=== PATIENT | female | born 1945 | race Caucasian/White ===

== ENCOUNTER 2023-12-14 23:15 | Emergency (ER) | payer MEDICARE, OTHER, SELFPAY ==
[2023-12-14 23:22] VITALS: BMI 47.7
[2023-12-14 23:23] VITALS: BP 152/75
[2023-12-14 23:41] LABS: % Basophils 1.4 % (0-2); % Eosinophils 14.5 % (0-6); % Immature Granulocytes 0.2 % (0-0.5); % Lymphocytes 18.7 % (20.5-51.1); % Monocytes 7.3 % (1.7-9.3); % Neutrophils 57.9 % (42.2-75.2); Absolute Basophils 0.1 10^3/uL (0-0.2); Absolute Eosinophils 1.2 10^3/uL (0-0.7); Absolute Lymphocytes 1.6 10^3/uL (1.2-3.4); Absolute Monocytes 0.6 10^3/uL (0.1-0.6); Absolute Neutrophils 4.9 10^3/uL (1.4-6.5); Hematocrit 36.6 % (37.0-47.0); Hemoglobin 12.2 g/dL (12.0-16.0); Mean Corp Hgb Conc. 33.3 g/dL (33.0-37.0); Mean Corpuscular Hgb 28.8 pg (27.0-31.0); Mean Corpuscular Volume 86.3 fL (81.0-99.0); Mean Platelet Volume 9.1 fL (7.4-10.4); Nucleated Red Blood Cells % 0 %; Platelet Count 257 10^3/uL (130-400); Red Blood Cell Count 4.24 10^6/uL (4.20-5.40); Red Cell Dist. Width 14.6 % (11.5-14.5); White Blood Cell Count 8.4 10^3/uL (4.8-10.8)
[2023-12-14 23:48] LABS: Urine Albumin Trace (Neg - Trace); Urine Bilirubin Negative (Negative); Urine Character Slightly Cloudy (Clear); Urine Color Yellow; Urine Glucose Negative (Negative); Urine Ketone Negative (Negative); Urine Leukocyte 2+ (Negative); Urine Nitrite Negative (Negative); Urine Occult Blood 3+ (Negative); Urine Urobilinogen Negative (Neg - 1+)
--- NOTE | 2023-12-14 23:53 | ED.GENMED ---
History of Present Illness
General
Chief Complaint: Heart Rate Problem
Time Seen by Provider: 12/14/23 23:26
History of Present Illness
History of Present Illness:
78-year-old female with history of neuropathy and hypertension presenting to the emergency department for left lower extremity pain and palpitations. Patient reports about 2 hours prior to arrival she started to feel fluttering in her chest. She
also felt like her left lower extremity was more swollen than her right. Reports that she has issues with her left lower extremity, multiple surgeries in the past including knee replacement x2, with chronic neuropathy. Denies associated chest
pain. However the palpitation did make her feel short of breath. They have been intermittent. Denies fever. She has had a mild cough. Denies abdominal pain or GI symptoms. Denies any history of arrhythmia. Denies any history of blood clot.
Denies additional acute medical complaints.
Past History
Past History
ED Past Medical History: HTN, Hypercholesterolemia, Other (Diverticulosis) and Other (Pylelonephritis)
ED Past Surgical History: Appendectomy, Gynecological (Right oophorectomy), Orthopedic and Other (Right breast lumpectomy)
Social History
Tobacco: Former smoker
Alcohol: Occasional
Drug: None
Personal:
Living: with family
Employment: Employed
Family History
Family History: Other (No significant)
Phy Exam
Physical Exam
Physical Exam:
General: Well-appearing, no clinical signs of dehydration, nontoxic and in no acute distress
HEENT: protecting airway
Neck: appears supple
CV: Normal heart rate, regular rhythm, no evidence of cyanosis
Resp: No accessory muscle use, no increased work of breathing, lungs clear to auscultation bilaterally
Abd: Soft and non-distended, no tenderness to palpation, normal bowel sounds
Extremities: No deformities, no significant swelling or deformity to the lower extremities, appear symmetric without erythema or warmth. Tenderness to the left calf. Sensation grossly intact. Pulses intact.
Neuro: alert, no focal neurologic deficit
: deferred
Rectal: deferred
Psych: Normal affect
Skin: Intact
Course
Orders/Labs/Results
Orders:
Orders
12/14/23 23:21
Electrocardiogram (*1) Urgent
Reason for Study: Chest Pain
Cardiac Monitoring- Treatment ONCE
EKG- Treatment ONCE
IV Insert/Care/Rem.- Treatment PRN
O2 Therapy [RESP] Urgent
Titrate/Wean O2 to maintain O2 sat greater than (%): 90
Special Instructions: Maintain sats >/=90%
Pulse Ox/spot Check [RESP] Urgent
Quantity: 1
Special Instructions: ON ROOM AIR
12/14/23 23:34
Complete Blood Count/With Diff Urgent
Comprehensive Metabolic Panel Urgent
NT-proBNP Urgent
Troponin I Urgent
12/14/23 23:37
Urinalysis Reflex To Culture Urgent
Date Specimen was Collected: 12/14/23
Time Specimen was Collected: 23:35
Urine Microscopic Reflex Cult Urgent
Urine Culture Urgent
[place] Source: U
Specimen Description:
Date Specimen was Collected: 12/14/23
Time Specimen was Collected: 23:35
12/14/23 23:53
D-Dimer Urgent
12/15/23 00:00
US Periph Venous LOWER Ext LT Urgent
Reason For Exam: swelling, calf pain
12/15/23 00:24
CT Chest Pe Study Urgent
Comment:
Reason For Exam: palpitations, positive dimer
12/15/23 02:07
Electrocardiogram (*1) Urgent
Reason for Study: Chest Pain
EKG- Treatment ONCE
12/15/23 02:08
Cephalexin Monohydrate [Keflex] 500 mg PO NOW STA
Abnormal Lab Results
12/14/23 12/14/23 12/14/23
23:34 23:37 23:53
Hct 36.6 L %
(37.0-47.0)
RDW 14.6 H %
(11.5-14.5)
Absolute Eos (auto) 1.2 H 10^3/uL
(0-0.7)
Lymphocytes % 18.7 L %
(20.5-51.1)
Eosinophils % 14.5 H %
(0-6)
D-Dimer 0.74 H ug/mlFEU
(0.00-0.50)
BUN 25 H mg/dl
(7-17)
Glucose 122 H mg/dl
(70-99)
Ur Occult Blood Reflex 3+ A
(Negative)
Leukocyte Esterase Rfl 2+ A
(Negative)
Urine RBC 7-10 A /HPF
(0-2)
Urine WBC (Reflex) >100 A /HPF
(0-5)
Urine Bacteria (Reflex) Moderate A
(Negative)
12/14/23 23:34
12/14/23 23:34
Vital Signs
Initial and Last Documented VS:
Initial Vital Signs
Pulse Resp
89 25
12/14/23 23:20 12/14/23 23:20
Last Documented Vital Signs
Temp Pulse Resp BP Pulse Ox
98.2 F 90 16 139/76 97
12/14/23 23:22 12/15/23 02:00 12/15/23 02:00 12/15/23 02:00 12/14/23 23:25
MDM/Problems Addressed
MDM/Problems Addressed:
78-year-old female with history of hypertension, COPD, neuropathy presenting to the emergency department with palpitations and left lower extremity pain. Symptoms occurred prior to arrival significant for mild hypertension.
Patient well-appearing on physical exam, no acute distress. EKG obtained on patient's arrival given complaint of palpitations, no arrhythmia, no ischemia. Heart rate is controlled. Possible PVCs as etiology of preceding symptoms. However,
patient also concerned that left lower extremity is more swollen than right. No obvious swelling, however is focally tender to the left calf. No signs of infection to the extremity. For this reason we will obtain ultrasound imaging and screen
with D-dimer to ensure no blood clot or developing PE. Plan for laboratory analysis including electrolyte panel, troponin, as well as continued cardiac monitoring.
02:30 -patient had slightly elevated dimer, so CT chest obtained, CT without acute pathology. No PE. Lower extremity ultrasound without evidence of blood clot. Labs otherwise unremarkable. Patient remains hemodynamically stable. EKG repeated,
unchanged. Patient reports that she is still feeling palpitations. Given comorbidities, offered observation admission, however patient declined. At this time, feel stable for discharge however with close interval follow-up with her shuttler car
for potential Holter monitor. Patient feels comfortable with plan. Return precautions discussed and patient verbalized understanding
*EKG
Interpreted by ED Provider?: Yes
EKG Intrepretation Date: 12/14/23
EKG Intrepretation Time: 23:55
Interpretation: normal
Comparison EKG: no changes (03/19/21)
Heart Rate: 84
Rate: normal
Rhythm: sinus
[place]: normal axis
Interval: normal interval
QRS Pattern: normal QRS
Ischemia: no ischemia
*Critical Care Note
Total Time (30-74mins, 75-104mins- exclusive of procedures): Not Applicable
ED Attending Note
-
Portions of this chart may have been created with voice recognition software.� Occasional wrong word or��sound alike� substitutions may have occurred due to the inherent limitations of voice recognition software.
Discharge Plan
Departure
Patient Disposition: Home (Routine Discharge)
Date of Disposition: 12/15/23
Time of Disposition: 02:39
Patient with high blood pressure during this ER visit?: No
Condition: Good
Discharge Problem:
Palpitations, Urinary tract infection
Instructions: Palpitations (DC)
Prescriptions:
New
cephalexin 500 mg capsule
500 mg PO BID 7 Days Qty: 14 0RF
No Action
zolpidem 10 MG tablet
5 mg PO HS
acetaminophen [Tylenol Extra Strength] 500 MG tablet
1,000 mg PO Q4HPRN PRN (Reason: pain)
Patient Comments:
losartan 50 MG tablet
25 mg PO DAILY
diltiazem HCl 240 MG capsule,extended release 24hr
240 mg PO DAILY
aspirin [Lo-Dose Aspirin] 81 MG tablet,delayed release (DR/EC)
81 mg PO DAILY
pantoprazole 40 MG tablet,delayed release (DR/EC)
40 mg PO DAILY
fluticasone propion-salmeterol [Advair HFA] 1 PUFF HFA aerosol inhaler
2 puff inhalation R BID
furosemide [Lasix] 40 mg Tablet
40 mg PO DAILY
metolazone 5 mg Tablet
5 mg PO DAILY
benzonatate [Tessalon Perles] 100 mg Capsule
100 mg PO TID PRN (Reason: cough)
Referrals:
Christiano Mendoza MD [Family Provider] -
Activity Restrictions/Additional Instructions:
You were seen in the emergency department for palpitations
You were found to have normal laboratory analysis, CT chest imaging, lower extremity ultrasound and EKG. You were found to have a urinary tract infection and started on antibiotics.
Please follow-up closely with your primary care physician as well as her shuttler car.
Return to the emergency department for any worsening of your symptoms, or any development of chest pain, difficulty breathing, abdominal pain with persistent vomiting and inability to tolerate food or liquid by mouth (concern for dehydration),
weakness, headache or confusion, fever greater than 100.4, or any additional symptoms that are concerning to you.
Thank you for choosing [facility].
Interventions
Interventions:
*Risk Screen - Suicide Last Done: 12/14/23 23:22
*General Assessment Last Done: 12/14/23 23:22
*Neglect/Abuse Screening Last Done: 12/14/23 23:22
*ED COVID-19 Vaccine History Last Done: 12/14/23 23:22
*Nursing Disposition Last Done: 12/15/23 02:55
ED- Cardiac Assessment Last Done: 12/14/23 23:25
ED- Pulmonary Assessment Last Done: 12/14/23 23:25
Discharge Date and Time
Discharge Date/Time: 12/15/23 02:56
Print Language: ALGERIAN
[2023-12-14 23:58] LABS: ALT (SGPT) 18 U/L (0-35); AST (SGOT) 20 U/L (14-36); Albumin 4.3 g/dl (3.5-5.0); Alkaline Phosphatase 118 U/L (38-126); Blood Urea Nitrogen 25 mg/dl (7-17); Calcium 9.4 mg/dl (8.4-10.2); Carbon Dioxide 29 mmol/L (22-30); Chloride 102 mmol/L (98-107); Estimated Creatinine Clearance 57 ml/min; Glucose 122 mg/dl (70-99); Potassium 3.9 mmol/L (3.5-5.1); Sodium 140 mmol/L (135-145); Total Bilirubin 0.3 mg/dl (0.2-1.3); eGFR 56.95
[2023-12-15] VITALS: BP 153/75
[2023-12-15 00:10] LABS: NT-proBNP 46.5 pg/ml; Troponin I < 0.012 ng/ml
[2023-12-15 00:15] LABS: D-Dimer 0.74 ug/mlFEU (0.00-0.50)
[2023-12-15 00:29] LABS: Urine Bacteria Moderate (Negative); Urine White Cell >100 /HPF (0-5)
[2023-12-15 01:30] VITALS: BP 127/74
[2023-12-15 02:00] VITALS: BP 139/76
[2023-12-15] MEDS: KEFLEX 500 MG PO (02:45)
== END 2023-12-15 02:56 | disposition home or self-care (01) ==
LOC: EMR 23:15
PROVIDERS: Emergency Medicine; EMERGENCY PHYSICIAN Student in an Organized Health Care Education/Training Program; FAMILY PHYSICIAN Family Medicine
DX: R00.2 Palpitations (principal); N39.0 Urinary tract infection, site not specified; R22.42 Localized swelling, mass and lump, left lower limb; I10 Essential (primary) hypertension; Z87.891 Personal history of nicotine dependence
CPT/HCPCS: 71275; 80053; 81003; 81015; 83880; 84484; 85025; 85379; 87086; 87088; 87186; 93005; 93971; 99285; Q9967

== ENCOUNTER → 2024-01-04 12:50 | Outpatient (REF) | payer MEDICARE, OTHER, SELFPAY | LOC: RCS 12:50 | PROVIDERS: ATTENDING PHYSICIAN Internal Medicine; FAMILY PHYSICIAN Family Medicine | DX: I49.3 Ventricular premature depolarization (principal) | CPT/HCPCS: 93225; 93226 ==

== ENCOUNTER → 2024-02-12 11:00 | Outpatient (REF) | payer MEDICARE, OTHER, SELFPAY | LOC: WDC 11:00 | PROVIDERS: ATTENDING PHYSICIAN Family Medicine | DX: Z12.31 Encounter for screening mammogram for malignant neoplasm of breast (principal) | CPT/HCPCS: 77063; 77067 ==

== ENCOUNTER → 2024-03-03 09:31 | Outpatient (REF) | payer MEDICARE, OTHER, SELFPAY ==
[2024-03-03 11:02] LABS: % Basophils 1.5 % (0-2); % Eosinophils 10.9 % (0-6); % Immature Granulocytes 0.4 % (0-0.5); % Lymphocytes 20.2 % (20.5-51.1); % Monocytes 7.2 % (1.7-9.3); % Neutrophils 59.8 % (42.2-75.2); Absolute Basophils 0.1 10^3/uL (0-0.2); Absolute Eosinophils 0.6 10^3/uL (0-0.7); Absolute Lymphocytes 1.1 10^3/uL (1.2-3.4); Absolute Monocytes 0.4 10^3/uL (0.1-0.6); Absolute Neutrophils 3.1 10^3/uL (1.4-6.5); Hematocrit 39.5 % (37.0-47.0); Hemoglobin 12.6 g/dL (12.0-16.0); Mean Corp Hgb Conc. 31.9 g/dL (33.0-37.0); Mean Corpuscular Hgb 28.1 pg (27.0-31.0); Mean Platelet Volume 9.9 fL (7.4-10.4); Nucleated Red Blood Cells % 0 %; Platelet Count 279 10^3/uL (130-400); Red Blood Cell Count 4.49 10^6/uL (4.20-5.40); Red Cell Dist. Width 14.2 % (11.5-14.5); White Blood Cell Count 5.3 10^3/uL (4.8-10.8)
[2024-03-03 11:28] LABS: Glycohemoglobin (HgbA1c) 5.8 % (4.0-5.6)
[2024-03-03 11:30] LABS: ALT (SGPT) 21 U/L (0-35); AST (SGOT) 22 U/L (14-36); Albumin 4.4 g/dl (3.5-5.0); Alkaline Phosphatase 91 U/L (38-126); Blood Urea Nitrogen 24 mg/dl (7-17); Calcium 9.3 mg/dl (8.4-10.2); Carbon Dioxide 31 mmol/L (22-30); Chloride 100 mmol/L (98-107); Glucose 99 mg/dl (70-99); HDL Cholesterol 65 mg/dl; LDL Cholesterol, Calculated 150 mg/dl; Magnesium 2.4 mg/dl (1.6-2.3); Potassium 4.6 mmol/L (3.5-5.1); Sodium 143 mmol/L (135-145); Total Bilirubin 0.4 mg/dl (0.2-1.3); Total Cholesterol 240 mg/dl (50-199); Total Protein 7.1 g/dl (6.3-8.2); Triglyceride 126 mg/dl (10-149); Very Low Density Lipoprotein 25 mg/dl (0-30); eGFR > 60.00
== END ==
LOC: REG 09:31
PROVIDERS: ATTENDING PHYSICIAN Family Medicine
DX: E66.01 Morbid (severe) obesity due to excess calories (principal); R48.2 Apraxia; M79.10 Myalgia, unspecified site; J98.4 Other disorders of lung; E78.2 Mixed hyperlipidemia; I10 Essential (primary) hypertension; K21.9 Gastro-esophageal reflux disease without esophagitis; Z78.9 Other specified health status; R73.01 Impaired fasting glucose
CPT/HCPCS: 36415; 80053; 80061; 83036; 83735; 85025

== ENCOUNTER → 2024-06-20 12:47 | Outpatient (REF) | payer MEDICARE, OTHER, SELFPAY | LOC: WDC 12:47 | PROVIDERS: ATTENDING PHYSICIAN Family Medicine | DX: R92.2 Inconclusive mammogram (principal) | CPT/HCPCS: 76641 ==

== ENCOUNTER 2024-07-27 11:58 | Inpatient (IN) | payer MEDICARE, OTHER, SELFPAY ==
[2024-07-27] VITALS (9 sets, daily range): BP systolic 107–161; BP diastolic 52–93; BMI 42.1; BMI 44.5
[2024-07-27] MEDS: DUONEB 3 ML INH ×2 (09:23→17:37)
[2024-07-27] MEDS: DECADRON 6 MG IV (09:23)
[2024-07-27] MEDS: ROBITUSSIN AC 10 ML PO ×2 (09:23→17:12)
[2024-07-27] MEDS: NSS 500 IV (09:23)
[2024-07-27 09:30] LABS: % Basophils 0.8 % (0-2); % Eosinophils 0.1 % (0-6); % Immature Granulocytes 1.5 % (0-0.5); % Lymphocytes 6.2 % (20.5-51.1); % Monocytes 6.8 % (1.7-9.3); % Neutrophils 84.6 % (42.2-75.2); Absolute Basophils 0.2 10^3/uL (0-0.2); Absolute Immature Granulocytes 0.3 10^3/uL (0-0.05); Absolute Lymphocytes 1.2 10^3/uL (1.2-3.4); Absolute Monocytes 1.4 10^3/uL (0.1-0.6); Absolute Neutrophils 16.9 10^3/uL (1.4-6.5); Hematocrit 36.6 % (37.0-47.0); Hemoglobin 12.2 g/dL (12.0-16.0); Mean Corp Hgb Conc. 33.3 g/dL (33.0-37.0); Mean Corpuscular Hgb 27.5 pg (27.0-31.0); Mean Corpuscular Volume 82.6 fL (81.0-99.0); Mean Platelet Volume 9.1 fL (7.4-10.4); Nucleated Red Blood Cells % 0 %; Platelet Count 311 10^3/uL (130-400); Red Blood Cell Count 4.43 10^6/uL (4.20-5.40); Red Cell Dist. Width 15.3 % (11.5-14.5)
--- NOTE | 2024-07-27 09:34 | ED.GENMED ---
History of Present Illness
General
Chief Complaint: Cough
Source: patient
Exam Limitations: none
Time Seen by Provider: 07/27/24 08:44
Nursing documentation reviewed up to this point in time: agreed with
History of Present Illness
History of Present Illness:
Patient presents to ED secondary to worsening cough with shortness of breath over the past 2 weeks. At onset of her symptoms, patient was evaluated by her primary care physician and tested positive for influenza. Since then, patient has been on
multiple doses of steroids as well as inhaler, with minimal relief in symptoms. Denies fever or chills. Denies nausea, vomiting, or diarrhea. Denies recent travel. Denies leg pain or swelling. Denies back pain. Denies chest pain. Patient
states that she has had difficult time sleeping secondary to persistent cough. Upon arrival, patient is found to be hypoxic (85% on RA), requiring supplemental oxygen.
Past History
Past History
ED Past Medical History: HTN, Hypercholesterolemia, Other (Diverticulosis) and Other (Pylelonephritis)
ED Past Surgical History: Appendectomy, Gynecological (Right oophorectomy), Orthopedic and Other (Right breast lumpectomy)
Social History
Tobacco: Former smoker
Alcohol: Occasional
Drug: None
Personal:
Living: with family
Employment: Employed
Family History
Family History: Other (No significant)
Review of Systems
Review of Systems
Allergies reviewed?: Yes
All Other Systems: ROS reviewed and negative except as documented in HPI and ROS
Constitutional: Reports no symptoms; Denies fever
Respiratory: Reports cough and trouble breathing
Cardiac: Reports no symptoms; Denies chest pain
ABD/GI: Reports no symptoms; Denies vomiting or diarrhea
Musculoskeletal: Reports no symptoms; Denies edema
Skin: Reports no symptoms
Neurological: Reports no symptoms
Phy Exam
Physical Exam
Physical Exam:
Physical Exam
General: mild respiratory distress, not acutely ill. afebrile. hypoxic
Head: nc/at. eomi
Neck: supple. normal range of motion
Heart: s1/s2 regular rate and rhythm, no murmur. equal radial pulses.
Lungs: mild respiratory distress. rhonchi if he gets really winded I am uncomfortable cardiovascular bilaterally
Abdomen: normal bowel sounds. not tender.
Neuro: alert and oriented x 3. no focal neurological deficits
Skin: no rash
Psychiatric: well kept. interactive and cooperative
Extremities: no edema. no calf tenderness.
Course
Orders/Labs/Results
Orders:
Orders
07/27/24 09:05
CR Chest - 2 Views Urgent
Comment:
Reason For Exam: cough/sob
07/27/24 09:06
0.9% Sodium Chloride 500 ml [Nss] 500 ml IV BOLUS
Dexamethasone Sod Phosphate [Decadron] 6 mg IV NOW STA
Guaifenesin/Codeine Solution [Robitussin AC] 10 ml PO NOW STA
Ipratropium/Albuterol Sulfate [Duoneb] 3 ml INH R NOW STA
07/27/24 09:18
Complete Blood Count/With Diff Urgent
Lactic Acid Q4H
Comment: CANCEL 2nd LACTIC ACID IF 1st LACTIC ACID IS LESS THAN 2
Blood Culture Q30M
[place] Source: Blood/Venous
Specimen Description:
07/27/24 09:25
COVID-19 Antigen Urgent
Source: Nasal Swab
Blood Culture Q30M
BR[place] Source: Blood/Venous
Specimen Description:
Influenza A+B Rapid Molecular Urgent
BR[place] Source: Nasal Swab
Specimen Description:
07/27/24 Lunch
Regular
At Your Request: Full Participation
07/27/24 10:10
Comprehensive Metabolic Panel Urgent
Magnesium Urgent
07/27/24 10:13
Azithromycin 500 mg/250 ml [Zithromax Infusion] 500 mg in 250 ml IV NOW
CefTRIAXone [Rocephin] 1,000 mg IV NOW STA
07/27/24 11:27
ECG [Electrocardiogram (*1)] Routine
Reason for Study: Chest Pain
07/27/24 11:33
Admit/Transfer Patient As Directed
Co-Sign Provider:
Level of Care: Inpatient admission
Assign to:: Telemetry
Physician / Group: Karen
Diagnosis: Pneumonia with hypoxia
Reason for Telemetry: Arrhythmia
Date to Stop Telemetry: 07/30/24
Time to Stop Telemetry: 11:00
Reason for Hospitalization: Above
Expected length of stay greater than two midnights?: Yes
ELOS- Estimated Length of Stay in days: 2
I certify the patient meets the requirements for IP care: Yes
PRN Pain Medication Management As Directed
May give lesser potent ordered pain med per pt: Yes
preference::
Protocol:: Medication orders for pain may be administered in a
manner that supports deferring to patient preference
when the pt is:
- Requesting an ordered lesser potent pain medication.
Least to most potent pain medications are defined
as: acetaminophen < NSAID < tramadol < opioids
(morphine, oxycodone, hydromorphone).
- Requesting a lesser dose of the same medication IF
ORDERED.
- Requesting a less intrusive route of administration
if both routes are prescribed by the provider (PO <
IV).
07/27/24 11:35
Code Status As Directed
Resuscitation Status: Full Code
07/27/24 11:42
BNP [NT-proBNP] Urgent
DDimer [D-Dimer] Urgent
Troponin I Urgent
07/27/24 13:59
Albuterol [ProAIR HFA INHALER] 2 puff INH R Q6HPRN PRN
Guaifenesin/Codeine Solution [Robitussin AC] 10 ml PO Q4HPRN PRN
Ipratropium/Albuterol Sulfate [Duoneb] 3 ml INH R Q4HPRN PRN
07/27/24 13:59
Echo 2D MMode Color/Doppler Routine
Reason for Study: hypoxia
Incentive Spirometry [Rx Incentive Spirometry] [RESP] Routine
Frequency: q1h while awake
DX Deep Vein Thrombosis Video Routine
07/27/24 14:21
Acetaminophen [Tylenol] 1,000 mg PO Q4HPRN PRN
07/27/24 14:25
Benzonatate [Tessalon Perles] 100 mg PO TIDPRN PRN
07/27/24 14:30
Diltiazem Extended Release [Cardizem Cd] 240 mg PO DAILY
Losartan [Cozaar] 25 mg PO DAILY
07/27/24 15:00
Furosemide [Lasix] 40 mg PO DAILY
Pantoprazole [Protonix] 40 mg PO DAILY
07/27/24 16:00
Dexamethasone Sod Phosphate [Decadron] 4 mg IV Q8H
07/27/24 18:00
Enoxaparin Sodium [Lovenox] 40 mg SC QPM
07/27/24 20:00
Fluticasone/Salmeterol 115/21 [Advair Hfa 115/21 Mcg Inhaler] 2 puff INH R BID
07/27/24 22:00
Zolpidem Tartrate [Ambien] 5 mg PO HS
07/28/24 06:00
BMP [Basic Metabolic Panel] IN AM
CBC/No Diff [Complete Blood Count/No Diff] IN AM
07/28/24 08:00
Azithromycin [Zithromax] 500 mg PO DAILY
07/28/24 10:00
CefTRIAXone [Rocephin] 1,000 mg IV Q24H
07/30/24 11:00
DC Protocol for Telemetry ONCE
Abnormal Lab Results
03/11/1507/27/24 07/27/24
09:18 10:10 11:42
WBC 20.0 H 10^3/uL
(4.8-10.8)
Hct 36.6 L %
(37.0-47.0)
RDW 15.3 H %
(11.5-14.5)
Abs Immat Gran (auto) 0.3 H 10^3/uL
(0-0.05)
Absolute Neuts (auto) 16.9 H 10^3/uL
(1.4-6.5)
Absolute Monos (auto) 1.4 H 10^3/uL
(0.1-0.6)
Immature Gran % 1.5 H %
(0-0.5)
Neutrophils % 84.6 H %
(42.2-75.2)
Lymphocytes % 6.2 L %
(20.5-51.1)
D-Dimer 0.79 H ug/mlFEU
(0.00-0.50)
Sodium 130 L mmol/L
(135-145)
Chloride 95 L mmol/L
(98-107)
BUN 24 H mg/dl
(7-17)
Glucose 106 H mg/dl
(70-99)
ALT 43 H U/L
(0-35)
Albumin 3.4 L g/dl
(3.5-5.0)
07/27/24 09:18
07/27/24 10:10
Vital Signs
Initial and Last Documented VS:
Initial Vital Signs
Temp Pulse Resp BP Pulse Ox
99.2 F 110 20 161/61 98
07/27/24 08:35 07/27/24 08:35 07/27/24 08:35 07/27/24 08:35 07/27/24 08:35
Last Documented Vital Signs
Temp Pulse Resp BP Pulse Ox
98.5 F 110 18 143/83 92
07/27/24 14:06 07/27/24 14:51 07/27/24 14:06 07/27/24 14:51 07/27/24 14:06
MDM/Problems Addressed
MDM/Problems Addressed:
History, exam, and chest x-ray consistent with likely superimposed pneumonia, on top of her recent influenza infection. Patient's initial hypoxia, improving on supplemental oxygen. Patient will be admitted for IV antibiotics, nebulizer treatment,
supplemental oxygen, along with IV fluids.
*EKG
Interpreted by ED Provider?: Yes
EKG Intrepretation Date: 07/27/24
Heart Rate: 108
Rate: tachycardiac
Rhythm: sinus
[place]: normal axis
*Critical Care Note
Total Time (30-74mins, 75-104mins- exclusive of procedures): Not Applicable
ED Attending Note
-
Portions of this chart may have been created with voice recognition software.� Occasional wrong word or��sound alike� substitutions may have occurred due to the inherent limitations of voice recognition software.
Discharge Plan
Departure
Patient Disposition: Admit
Date of Disposition: 07/27/24
Time of Disposition: 10:16
Admit to: Telemetry
Presentation/result/management discussed w/ accepting MD/DO: Hospitalist
Discharge Problem:
Pneumonia, Hypoxia
Interventions
Interventions:
*Risk Screen - Suicide Last Done: 07/27/24 08:35
*General Assessment Last Done: 07/27/24 09:29
*Neglect/Abuse Screening Last Done: 07/27/24 08:35
*ED- Fall Risk Assessment Last Done: 07/27/24 09:29
*ED COVID-19 Vaccine History Last Done: 07/27/24 09:29
*Nursing Disposition Last Done: 07/27/24 12:17
ED- Pulmonary Assessment Last Done: 07/27/24 09:29
Discharge Date and Time
Discharge Date/Time: 07/27/24 13:45
[2024-07-27 09:48] LABS: Lactic Acid 1.7 mmol/L (0.7-2.0)
[2024-07-27 09:53] LABS: COVID-19 Antigen Negative (Negative)
[2024-07-27] MEDS: ROCEPHIN 1000 MG IV (10:19)
[2024-07-27] MEDS: ZITHROMAX INFUSION 250 IV (10:19)
[2024-07-27 10:37] LABS: ALT (SGPT) 43 U/L (0-35); AST (SGOT) 30 U/L (14-36); Albumin 3.4 g/dl (3.5-5.0); Alkaline Phosphatase 118 U/L (38-126); Blood Urea Nitrogen 24 mg/dl (7-17); Calcium 9.2 mg/dl (8.4-10.2); Carbon Dioxide 28 mmol/L (22-30); Chloride 95 mmol/L (98-107); Estimated Creatinine Clearance 68 ml/min; Glucose 106 mg/dl (70-99); Magnesium 2.2 mg/dl (1.6-2.3); Potassium 4.1 mmol/L (3.5-5.1); Sodium 130 mmol/L (135-145); Total Bilirubin 1.1 mg/dl (0.2-1.3); Total Protein 6.3 g/dl (6.3-8.2); eGFR > 60.00
--- NOTE | 2024-07-27 11:48 | HPS.HSE ---
Family Physician
-
Family Physician: Christiano Mendoza
Chief Complaint
-
Shortness of breath and cough
History of Present Illness
Patient is 78 years old female with hypertension, dyslipidemia who was diagnosed with influenza over a week prior to presentation. Patient was seen by primary physician initiated on inhaled corticosteroids and nebulizers, went through multiple
courses of oral steroids, although comes to the emergency room with complaints of worsening of shortness of breath, persistent cough which become productive over the last few days. She reports subjective fever. She has persistent chest pain with
cough. In addition she complains inability to sleep through the night or lay flat. She denies any lower extremity swelling. She has been compliant with her blood pressure regimen including furosemide.
While in the emergency room patient found to be in mild respiratory distress with increased work of breathing, tachycardia. She was found to be hypoxic with pulse ox of 88% on room air. Improved with nasal cannula oxygen supplementation at 2 L
currently saturating at 90s.
Medical History
Past Medical History
Past Medical History: Reports HTN, Hypercholesterolemia and Other (UTI)
Past Surgical History: Reports None
Social History
Tobacco: Non-smoker
Alcohol: None
Drug: None
Personal:
Living: With Family
Family History
Family History: Not pertinent
Allergies / Home Medications
Allergies reflects when Allergies were last updated in [facility].
Home Medications with original date entered in [facility]
Allergy/Medication List:
Allergies
Allergy/AdvReac Type Severity Reaction Status Date / Time
adhesive tape [Adhesive Tape] Allergy blisters Verified 07/27/24 08:38
Barbiturates Allergy hyperactivi Verified 07/27/24 08:38
ty
morphine Allergy itchy face Verified 07/27/24 08:38
and nausea
Vicryl sutures Allergy rejection Uncoded 07/27/24 08:38
reaction
Home Medications
acetaminophen 500 mg tablet (Tylenol Extra Strength) 1,000 mg PO Q4HPRN PRN MILD pain 06/19/18
diltiazem HCl 240 mg capsule,extended release 24 hr 240 mg PO DAILY 03/24/21
pantoprazole 40 mg tablet,delayed release 40 mg PO DAILY 03/24/21
benzonatate 100 mg capsule 100 mg PO TIDPRN PRN cough 12/15/23
furosemide 40 mg tablet (Lasix) 40 mg PO DAILY 12/15/23
albuterol sulfate 90 mcg/actuation aerosol inhaler 2 puff inhalation R Q6HPRN PRN sob 07/27/24
fluticasone propionate 115 mcg-salmeterol 21 mcg/actuation HFA inhaler (Advair HFA) 2 puff inhalation R BID 07/27/24
ipratropium bromide 17 mcg/actuation HFA aerosol inhaler (Atrovent HFA) 2 puff inhalation R Q6HPRN PRN sob 07/27/24
losartan 25 mg tablet 25 mg PO DAILY 07/27/24
prednisone 20 mg tablet 60 mg PO DIRECTED 07/27/24
promethazine-DM 6.25 mg-15 mg/5 mL oral syrup 5 ml PO Q6HPRN PRN cough 07/27/24
tirzepatide (weight loss) 5 mg/0.5 mL subcutaneous pen injector (Zepbound) 5 mg SC WE 07/27/24
zolpidem 5 mg tablet (Ambien) 5 mg PO HS 07/27/24
Review of Systems
-
A 12 point ROS was completed and negative except as noted: Yes
Respiratory: Reports See HPI
Cardiac: Reports See HPI
Abdomen/GI: Reports See HPI
Physical Exam
Vital Signs
Vital Signs
Temp Pulse Resp BP Pulse Ox
99.2 F 115 16 130/91 91
07/27/24 08:35 07/27/24 09:15 07/27/24 10:00 07/27/24 09:00 07/27/24 09:15
Physical Exam
General: Well Developed, Well Nourished and No Apparent Distress
HEENT: NormoCephalic, Moist mucous membranes and Atraumatic
Respiratory: Clear
Cardiac: S1/S2 and Regular Rhythm; No Murmur or Rub
GI: Soft, Non Tender, Non Distended and Normal Bowel Sounds; No Organomegaly
Rectal: Deferred by Provider
Musculoskeletal: No Clubbing, No Cyanosis and No Edema
Skin: No Rash
Neuro: Nonfocal/grossly intact
Laboratory Results
-
07/27/24 09:18
07/27/24 10:10
Laboratory Results
Lactic Acid 1.7 mmol/L (0.7-2.0) 07/27/24 09:18
Total Bilirubin 1.1 mg/dl (0.2-1.3) 07/27/24 10:10
AST 30 U/L (14-36) 07/27/24 10:10
ALT 43 U/L (0-35) H 07/27/24 10:10
Alkaline Phosphatase 118 U/L (38-126) 07/27/24 10:10
Impression/Plan
-
IMPRESSION:
Acute hypoxic respiratory failure
Pneumonia, post influenza with right lower lobe infiltrate.
Orthopnea, paroxysmal nocturnal dyspnea
Leukocytosis probably steroid-induced.
Conditions prior to admission:
Hypertension
Dyslipidemia baseline
Obesity due to excessive calories with BMI of 42
PLAN:
Acute hypoxic respiratory failure with pulse ox of 88% on room air.
Suspect secondary to pneumonia, community-acquired post influenza
Chest x-ray with hypoinflation, with right lower lobe consolidation
Productive cough.
Noted with leukocytosis although likely steroid-induced while on corticosteroid taper
COVID/influenza negative on arrival
Sputum culture
Procalcitonin
Continue oxygen supplementation
Antibiotics: Ceftriaxone/Zithromax
Antitussives
Incentive spirometry
Inhaled JOEL/JORGE
Okay to continue Advair
Given significant bronchospasm on exam continue systemic corticosteroids: Decadron 4 mg IV every 8 hours
Given degree of hypoxia out of proportion of x-ray findings only minimal right lower lobe consolidation.
Check cardiac markers BNP/troponin
D-dimer
Echocardiogram
ECG
Hypertension
Continue preadmission regimen including diltiazem losartan, furosemide
GERD
Continue PPI
Obesity with BMI of 42 aspects affects all aspects of care.
Full code
DVT prophylaxis Lovenox
[2024-07-27 12:07] LABS: D-Dimer 0.79 ug/mlFEU (0.00-0.50)
[2024-07-27 12:16] LABS: NT-proBNP 474 pg/ml; Troponin I < 0.012 ng/ml
[2024-07-27 13:04] LABS: Procalcitonin 0.26 ng/ml (0.0-0.25)
[2024-07-27] MEDS: CARDIZEM CD 240 MG PO (14:50)
[2024-07-27] MEDS: PROTONIX 40 MG PO (14:50)
[2024-07-27] MEDS: COZAAR 25 MG PO (14:51)
[2024-07-27] MEDS: LASIX 40 MG PO (14:51)
[2024-07-27] MEDS: DECADRON 4 MG IV ×2 (16:44→23:43)
[2024-07-27] MEDS: TESSALON PERLES 100 MG PO (16:46)
[2024-07-27] MEDS: TYLENOL 1000 MG PO (16:47)
[2024-07-27] MEDS: LOVENOX 40 MG SC (17:12)
--- NOTE | 2024-07-27 18:24 | PTCARENOTE ---
Pt received from ED and walked to bed from stretcher with rolling walker. VSS. AAOx3. Oriented to unit by this RN. Pt taken to echo. When back, pt complaining of cough. PRN medications given. Monitor showing afib rythmn. made aware. EKG obtained
showing NSR with premature supraventricular complexes. Pt cough subsided and pt states feeling better, will continue to monitor.
[2024-07-27] MEDS: ADVAIR HFA 115/21 MCG INHALER 2 PUFF INH (20:20)
[2024-07-27] MEDS: DESENEX/MITRAZOL/ZEASORB 1 APPLIC TOPICAL (21:59)
[2024-07-27] MEDS: AMBIEN 5 MG PO (21:59)
[2024-07-28] VITALS (7 sets, daily range): BP systolic 103–123; BP diastolic 52–90
[2024-07-28 06:33] LABS: Hematocrit 33.5 % (37.0-47.0); Mean Corp Hgb Conc. 32.8 g/dL (33.0-37.0); Mean Corpuscular Hgb 27.2 pg (27.0-31.0); Mean Corpuscular Volume 82.7 fL (81.0-99.0); Mean Platelet Volume 9.2 fL (7.4-10.4); Platelet Count 295 10^3/uL (130-400); Red Blood Cell Count 4.05 10^6/uL (4.20-5.40); Red Cell Dist. Width 15.3 % (11.5-14.5); White Blood Cell Count 17.9 10^3/uL (4.8-10.8)
[2024-07-28 06:42] LABS: Blood Urea Nitrogen 24 mg/dl (7-17); Calcium 9.4 mg/dl (8.4-10.2); Carbon Dioxide 29 mmol/L (22-30); Chloride 92 mmol/L (98-107); Estimated Creatinine Clearance 78 ml/min; Glucose 164 mg/dl (70-99); Potassium 4.3 mmol/L (3.5-5.1); Sodium 132 mmol/L (135-145); eGFR > 60.00
[2024-07-28] MEDS: ADVAIR HFA 115/21 MCG INHALER 2 PUFF INH ×2 (07:17→18:16)
[2024-07-28] MEDS: COZAAR 25 MG PO (08:44)
[2024-07-28] MEDS: TESSALON PERLES 100 MG PO ×3 (08:44→21:16)
[2024-07-28] MEDS: DECADRON 4 MG IV ×2 (08:44→16:49)
[2024-07-28] MEDS: ZITHROMAX 500 MG PO (08:45)
[2024-07-28] MEDS: LASIX 40 MG PO (08:45)
[2024-07-28] MEDS: CARDIZEM CD 240 MG PO (08:45)
[2024-07-28] MEDS: ROBITUSSIN AC 10 ML PO ×3 (08:45→21:16)
[2024-07-28] MEDS: PROTONIX 40 MG PO (08:45)
[2024-07-28] MEDS: ROCEPHIN 1000 MG IV (08:53)
[2024-07-28] MEDS: STERILE WATER FOR INJECTION 10 ML IV (08:54)
[2024-07-28] MEDS: DESENEX/MITRAZOL/ZEASORB TOPICAL (09:38)
--- NOTE | 2024-07-28 13:20 | CM ---
Met with patient to obtain information for assessment. Patient stated that she lives with her spouse in a two story home with two steps to enter. She described herself as independent with all ADLs, personal care, dressing and bathing. She is able to
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 She has been driving and transporting herself to her appointments and does all of her own shopping.
Patient has not had VN services.
She has not been to a DME.
Patient has a prescription plan and uses, [facility] in [place] for all of her medications.
Patient's PCP is, Christiano Mendoza.
Patient stated that functionally she is at baseline however she does not have o2 at home and therefore if she can't wean she will need that set up.
--- NOTE | 2024-07-28 14:21 | PN.CDI ---
CDI
- -
CDI:
Physician Documentation Request
Admit Date: 07/27/24 11:58
Dear Doctor Karen,
Patient admitted with pneumonia.
On admission, WBC 20.0 and HR> 90.
Patent receiving IV Rocephin and IV Zithromax.
Please clarify which of the following most accurately describes the status of the patient's infection:
Sepsis, POA
Pneumonia only
Other
Sepsis
- Systemic manifestations of infection, with 2 or more SIRS criteria which include:
- Fever >100.4 degrees F or hypothermia < 96.8 degrees F
- Leukocytosis - WBC > 12,000 or leukopenia - WBC < 4,000 or > 10% bands
- Tachycardia > 90 beats per minute
- Tachypnea - RR > 20 breaths per minute or PaCO2 , 32mmHg
Source: Merck Manual 2013
- Indicate the known or suspected organism
- Indicate the known or suspected underlying infection, such as pneumonia
Localized Infection Only, Without Systemic Illness
- indicate the site/source, such as pneumonia
Other
Use of terms such as suspected, likely, concern for, or probable (associated with a specific diagnosis that is being evaluated, monitored, or treated as if it exists) are acceptable and can be coded in the inpatient setting, when documented at the
time of discharge.
Thank you,
Lindsey TA,RN,CCDS
CDI Specialist
Available via [place] text
Please use your independent medical judgment in providing your response.
--- NOTE | 2024-07-28 14:31 | PN.CDI ---
CDI
- -
CDI:
Physician Documentation Request
Admit Date: 07/27/24 11:58
Dear Doctor Karen,
Patient admitted with pneumonia.
Na levels documented below:
Patient received IV NSS.
Laboratory Tests
07/27/24 07/28/24
10:10 05:49
Sodium 130 L 132 L
Based on the above, please clarify in the progress notes, the appropriate diagnosis, if significant, that supports the above abnormalities and additional evaluation, monitoring and/or treatment rendered:
Hyponatremia
Insignificant abnormal lab finding
Other
Use of terms such as suspected, likely, concern for, or probable (associated with a specific diagnosis that is being evaluated, monitored, or treated as if it exists) are acceptable and can be coded in the inpatient setting, when documented at the
time of discharge.
Thank you,
Lindsey TA,RN,CCDS
CDI Specialist
Available via [place] text
Please use your independent medical judgment in providing your response.
[2024-07-28] MEDS: DUONEB 3 ML INH (15:10)
--- NOTE | 2024-07-28 15:32 | CON.ID ---
Addendum entered and electronically signed by Chuck Jones MD 07/31/24 16:54:
Sepsis present on admission.
Mild hyponatremia likely in the settings of acute pulmonary illness
Original Note:
Consultation
-
Date/Time Consultation Requested: July 28, 2024
Date/Time Consultation Performed: July 28, 2024
Requesting Provider: Dr. Chuck Jones
Performing Provider: Dr. Beatriz Dickson
Reason for Consultation: Bacteremia, pneumonia
Chief Complaint / Past History
Chief Complaint
Progressive cough
History of Present Illness
78-year-old female with history of hypertension, mild COPD who presented to the hospital on July 27 due to worsening cough and shortness of breath. She reports that 2 weeks ago she developed a dry cough and was diagnosed with influenza A which was
treated with oseltamivir. Of note she is not up-to-date with this season's vaccine against the flu. Her symptoms did not improve and continued to progress. Cough without response to inhalers. She has spasms from the cough. No sinus congestion.
No headaches. She has subjective fever and chills. No nausea vomiting or diarrhea. In the ED white count 20. She was hypoxic 88%. Chest CT showed airspace opacities from mid to lower lungs bilaterally. Admission blood cultures x 2 GPC in
clusters. Currently on ceftriaxone, azithromycin, dexamethasone.
Past History
Additional Past Medical History:
Hypertension
Dyslipidemia
Mild COPD
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
Allergy History:
adhesive tape [Adhesive Tape] Allergy (Verified 07/27/24 08:38)
blisters
Barbiturates Allergy (Verified 07/27/24 08:38)
hyperactivity
morphine Allergy (Verified 07/27/24 08:38)
itchy face and nausea
Vicryl sutures Allergy (Uncoded 07/27/24 08:38)
rejection reaction
Medications Reviewed: Yes
Current Antibiotics:
Ceftriaxone
Azithromycin
dexamethasone
Social History
Tobacco: Non-Smoker
Alcohol: None
Drug: None
Personal:
Living: With Family
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
Family History
Family History: Not Pertinent
Review of Systems
Review of Systems
General: Fever, Chills and Change in Appetite
HEENT: Negative Sinus Problems, Headache or Pharyngitis
Cardiovascular: Negative Chest Pain
Respiratory: Dyspnea and Cough; Negative Sputum Production
Gasteroenterology: Negative Nausea, Vomiting or Diarrhea
Genital / Urological: Negative Dysuria or Flank Pain
Endocrine: Weakness
Skin / Hair / Nails: Negative Rash
All systems: All other systems were reviewed and were negative
Vital Signs
Temp Pulse Resp BP Pulse Ox
98.3 F 81 16 115/90 97
07/28/24 10:59 07/28/24 15:12 07/28/24 15:12 07/28/24 10:59 07/28/24 15:12
Physical Exam
Physical Exam
Constitutional: Acutely Ill
Head: Other (No frontal or max or sinus tenderness)
Eyes: No Conjunctival Hemorrhage and Sclera Anicteric
Cardiovascular: Regular Rate and S1/S2
Pulmonary: Rales (Bilateral crackles)
Gastrointestinal: Soft, Non Tender, Non Distended and Normal Bowel Sounds
Genito-Urinary: Negative CVA Tenderness
Extremities: Negative Edema
Neurological: AO x 3
Lab / Diagnostic Study Results
07/28/24 05:49
07/28/24 05:49
Abs Immat Gran (auto) 0.3 10^3/uL (0-0.05) H 07/27/24 09:18
Absolute Neuts (auto) 16.9 10^3/uL (1.4-6.5) H 07/27/24 09:18
Absolute Lymphs (auto) 1.2 10^3/uL (1.2-3.4) 07/27/24 09:18
Absolute Monos (auto) 1.4 10^3/uL (0.1-0.6) H 07/27/24 09:18
Absolute Basos (auto) 0.2 10^3/uL (0-0.2) 07/27/24 09:18
Immature Gran % 1.5 % (0-0.5) H 07/27/24 09:18
Neutrophils % 84.6 % (42.2-75.2) H 07/27/24 09:18
Lymphocytes % 6.2 % (20.5-51.1) L 07/27/24 09:18
Monocytes % 6.8 % (1.7-9.3) 07/27/24 09:18
Eosinophils % 0.1 % (0-6) 07/27/24 09:18
Basophils % 0.8 % (0-2) 07/27/24 09:18
Lactic Acid Cancelled 07/27/24 13:15
Procalcitonin 0.26 ng/ml (0.0-0.25) H 07/27/24 12:12
Microbiology Results
Micro:
07/27/24 09:25 Blood Culture - Preliminary
Blood/Venous Positive culture in progress
Gram Stain - Preliminary
07/27/24 09:18 Blood Culture - Preliminary
Blood/Venous Positive culture in progress
Gram Stain - Preliminary
07/27/24 09:25 Influenza Types A & B (SARATH) - Final
Nasal Swab Negative for Influenza A & B, NAAT
Negative results must be combined with clinical observations
and patient history.
Nucleic Acid Amplification test (NAAT)performed on the
[employer] platform.
07/27/[address]: Airspace opacities within the mid to lower lungs bilaterally, morphologic appearance highly suggestive of bilateral pneumonia. No evidence for associated pleural effusion. No evidence for cavitation.
Assessment / Plan
# GPC clusters bacteremia (2 anaerobic bottles)
# Multifocal pneumonia
# Acute hypoxic resp insufficiency
# Leukocytosis
# Recent influenza infection 2 week [employer]YE [employer] O[employer] treated with oseltamivir. (Unvaccinated status)
- At risk for post-influenza PNA with MRSA, MSSA, Strep pneumo, or GAS.
- Repeat blood cx's x 2 then start IV Vancomycin. Follow levels.
- Check urine legionella and strep pneumo antigens
- Can continue ceftriaxone and azithromycin for now.
- Trend wbc.
# Conditions [employer]YE [employer] O[employer]
Hypertension
Dyslipidemia
Mild COPD
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
--- NOTE | 2024-07-28 15:52 | W.PN.HOSP.TC ---
Today's Communication/Plan
-
Oxygen supplementation per
Antibiotics
ID consultation to comment on possible bacteremia
Repeat blood culture for clearance
Continue IV steroids with unchanged dose
Continue nebulizers
Assessment / Plan
Assessment / Plan
IMPRESSION:
Acute hypoxic respiratory failure
Pneumonia, post influenza, community-acquired. Bilateral infiltrates
Leukocytosis on presentation probably steroid-induced.
Conditions prior to admission:
Hypertension
Dyslipidemia baseline
Obesity due to excessive calories with BMI of 42
PLAN:
Acute hypoxic respiratory failure with pulse ox of 88% on room air.
Suspect secondary to pneumonia, community-acquired post influenza
Chest x-ray with hypoinflation, with right lower lobe consolidation
CT scan of the chest negative for pulmonary embolism. Bilateral diffuse infiltrates
Blood culture 2/2 with gram-positive cocci in clusters? Contaminant
COVID/influenza negative on arrival
Sputum culture pending
Continue oxygen supplementation
Antibiotics: Ceftriaxone/Zithromax
ID consultation to comment on possible bacteremia and antibiotics
Antitussives
Incentive spirometry
Inhaled JOEL/JORGE
Okay to continue Advair
Given significant bronchospasm on exam continue systemic corticosteroids: Decadron 4 mg IV every 8 hours
Hypertension
Echo with preserved LVEF at 70-75%. Noted with increased pulmonary artery pressure at 40-45 mmHg
Will continue oral furosemide at this point. May require additional diuresis if oxygenation is not improving with antibiotic/steroid therapy
Continue preadmission regimen including diltiazem losartan, furosemide
GERD
Continue PPI
Obesity with BMI of 42 aspects affects all aspects of care.
Full code
DVT prophylaxis Lovenox
Anticipated Discharge: 24 - 48 hours
Subjective/Interval History
-
Date of Service: July 28, 2024
Objective Data
-
Labs:
Laboratory Results
07/28/24
05:49
WBC 17.9 H
Hgb 11.0 L
Hct 33.5 L
Plt Count 295
Sodium 132 L
Potassium 4.3
Chloride 92 L
Carbon Dioxide 29
BUN 24 H
Creatinine 0.7
Glucose 164 H
Calcium 9.4
Vital Signs:
Vital Signs
Temp Pulse Resp BP Pulse Ox
98.8 F 77 18 103/62 93
07/28/24 15:47 07/28/24 15:47 07/28/24 15:47 07/28/24 15:47 07/28/24 15:47
I&O
07/27/24 07/28/24 07/29/24
06:59 06:59 06:59
Intake Total 200 / 200
Balance 200 / 200
Physical Exam
-
General: Well Developed and No Apparent Distress
HEENT: Normocephalic, Atraumatic and Moist Mucous Membranes
Respiratory: Wheezes and Rhonchi
Cardiac: Regular Rhythm and S1/S2; Negative Murmur, Rub or Gallop
GI: Soft, Nontender, Nondistended and Normal Bowel Sounds; Negative Organomegaly
Rectal: Deferred by Provider
Musculoskeletal: No Clubbing, No Cyanosis and No Edema
Skin: Negative Rash
Neuro: Nonfocal/Grossly Intact
[2024-07-28] MEDS: LOVENOX 40 MG SC (16:50)
--- NOTE | 2024-07-28 16:58 | PHA.VAN.IN ---
Assessment
- Assessment
Renal Function: Appears similar to baseline (07/27/24 BASELINE SCR: 0.8)
- Previous Dosing Experience
Previous Regimen: NONE
AUC Dosing Plan
- Dosing Variables
Dosing Weight (kg): 113.8
Dosing CrCl (ml/min): 78
Vd coefficient (L/kg): 0.5
- Empiric Dosing
Initial / Loading Dose: 2GM
Maintenance Regimen: 1GM IV Q12H
Estimated AUC (mcg*h/mL): 526
Estimated Peak (mcg*h/mL): 31.2
Estimated Trough (mcg/ml): 14.6
Estimated Half Life (H): 10
Pharmacokinetics Vancomycin I
- -
Patient Age: 78
Patient Sex: Female
Vancomycin Day #: 1
Indication: Bacteremia
Requesting Provider: KASHIF
Height / Weight:
Height 5 ft 3 in
Actual Weight 113.806 kg
- Vital Signs / Lab Results
Temp Pulse Resp BP Pulse Ox
98.8 F 77 18 103/62 93
07/28/24 15:47 07/28/24 15:47 07/28/24 15:47 07/28/24 15:47 07/28/24 15:47
Lab Results - Hematology
07/27/24 07/28/24
09:18 05:49
WBC 20.0 H 17.9 H
Lab Results - Chemistry
07/27/24 07/27/24 07/27/24
09:18 09:43 10:10
BUN Cancelled Cancelled 24 H
Creatinine Cancelled Cancelled 0.8
Estimated Creat Clear Cancelled Cancelled 68
Albumin Cancelled Cancelled 3.4 L
07/28/24
05:49
BUN 24 H
Creatinine 0.7
Estimated Creat Clear 78
Albumin
07/27/24 07/27/24
09:18 13:15
Lactic Acid 1.7 Cancelled
Microbiology Results
07/27/24 09:25 Blood Culture - Preliminary
Blood/Venous Positive culture in progress
Gram Stain - Preliminary
07/27/24 09:18 Blood Culture - Preliminary
Blood/Venous Positive culture in progress
Gram Stain - Preliminary
07/27/24 09:25 Influenza Types A & B (SARATH) - Final
Nasal Swab Negative for Influenza A & B, NAAT
Negative results must be combined with clinical observations
and patient history.
Nucleic Acid Amplification test (NAAT)performed on the
[employer] platform.
[2024-07-28] MEDS: DESENEX/MITRAZOL/ZEASORB 1 APPLIC TOPICAL (21:10)
[2024-07-28] MEDS: VANCOCIN 540 MG IV (21:12)
[2024-07-28] MEDS: AMBIEN 5 MG PO (21:28)
[2024-07-29] MEDS: DECADRON 4 MG IV ×3 (00:18→21:01)
[2024-07-29] MEDS: ROBITUSSIN AC 10 ML PO ×3 (03:25→20:59)
[2024-07-29 03:30] VITALS: BP 140/62
[2024-07-29] MEDS: VANCOCIN 200 IV ×2 (05:56→17:30)
[2024-07-29 07:05] VITALS: BP 119/59
[2024-07-29] MEDS: ADVAIR HFA 115/21 MCG INHALER 2 PUFF INH ×2 (07:15→19:12)
[2024-07-29] MEDS: DUONEB 3 ML INH ×3 (07:16→19:13)
[2024-07-29] MEDS: ZITHROMAX 500 MG PO (07:48)
[2024-07-29] MEDS: COZAAR 25 MG PO (07:49)
[2024-07-29] MEDS: CARDIZEM CD 240 MG PO (07:49)
[2024-07-29] MEDS: LASIX 40 MG PO (07:49)
[2024-07-29] MEDS: PROTONIX 40 MG PO (07:49)
[2024-07-29] MEDS: DESENEX/MITRAZOL/ZEASORB TOPICAL (07:55)
[2024-07-29] MEDS: TESSALON PERLES 100 MG PO (08:11)
[2024-07-29 09:05] LABS: Hematocrit 34.6 % (37.0-47.0); Hemoglobin 11.2 g/dL (12.0-16.0); Mean Corp Hgb Conc. 32.4 g/dL (33.0-37.0); Mean Corpuscular Hgb 27.3 pg (27.0-31.0); Mean Corpuscular Volume 84.2 fL (81.0-99.0); Mean Platelet Volume 9.4 fL (7.4-10.4); Platelet Count 348 10^3/uL (130-400); Red Blood Cell Count 4.11 10^6/uL (4.20-5.40); Red Cell Dist. Width 15.5 % (11.5-14.5); White Blood Cell Count 15.2 10^3/uL (4.8-10.8)
--- NOTE | 2024-07-29 09:33 | PHA.VAN.FU ---
Vancomycin Assessment / Plan
- Assessment
Renal Function: Stable
WBC's are: Trending Down (17.9 -> 15.2)
In the past 24 hrs, patient has been: Afebrile
Concomitant Antimicrobials: Azithromycin, Ceftriaxone
- Dosing Plan
Continue: Vanco 1000mg Q12H
- Monitoring Plan
No level(s) ordered at this time: Consider in the next few days
- Follow Up
Pharmacy will continue to follow.
Vancomycin Follow UP
- -
Patient Age: 78
Patient Sex: Female
Vancomycin Day #: 2
Indication: Bacteremia
Requesting Provider: KASHIF
Height / Weight:
Height 5 ft 3 in
Actual Weight 113.806 kg
- Vital Signs / Lab Results
Temp Pulse Resp BP Pulse Ox
97.7 F 84 16 119/59 97
07/29/24 07:05 07/29/24 07:17 07/29/24 07:17 07/29/24 07:05 07/29/24 07:17
Lab Results - Hematology
07/27/24 07/28/24 07/29/24
09:18 05:49 08:14
WBC 20.0 H 17.9 H 15.2 H
Lab Results - Chemistry
07/27/24 07/27/24 07/27/24
09:18 09:43 10:10
BUN Cancelled Cancelled 24 H
Creatinine Cancelled Cancelled 0.8
Estimated Creat Clear Cancelled Cancelled 68
Albumin Cancelled Cancelled 3.4 L
07/28/24
05:49
BUN 24 H
Creatinine 0.7
Estimated Creat Clear 78
Albumin
07/27/24 07/27/24
09:18 13:15
Lactic Acid 1.7 Cancelled
Microbiology Results
07/29/24 03:31 Streptococcus pneumoniae Antigen (M - Final
Urine Negative for Streptococcus pneumoniae antigen.
A negative result does not exclude infection with
Streptococcus pneumoniae. Clinical correlation is
recommended.
07/29/24 03:31 Legionella Urinary Antigen - Final
Urine Negative for Legionella pneumophila Serogroup 1 antigen.
A negative result does not rule out the possiblity of
Legionella infection due to other serogroups or species of
Legionella. Clinical correlation is recommended.
07/27/24 09:25 Blood Culture - Preliminary
Blood/Venous Positive culture in progress
Gram Stain - Preliminary
07/27/24 09:18 Blood Culture - Preliminary
Blood/Venous Positive culture in progress
Gram Stain - Preliminary
07/27/24 09:25 Influenza Types A & B (SARATH) - Final
Nasal Swab Negative for Influenza A & B, NAAT
Negative results must be combined with clinical observations
and patient history.
Nucleic Acid Amplification test (NAAT)performed on the
[employer] platform.
[2024-07-29 09:51] LABS: Blood Urea Nitrogen 31 mg/dl (7-17); Calcium 9.5 mg/dl (8.4-10.2); Carbon Dioxide 28 mmol/L (22-30); Chloride 90 mmol/L (98-107); Estimated Creatinine Clearance 68 ml/min; Glucose 161 mg/dl (70-99); Potassium 4.3 mmol/L (3.5-5.1); Sodium 130 mmol/L (135-145); eGFR > 60.00
[2024-07-29] MEDS: ROCEPHIN 1000 MG IV (10:34)
[2024-07-29] MEDS: VISBIOME 2 CAP PO (10:35)
[2024-07-29] MEDS: STERILE WATER FOR INJECTION 10 ML IV (10:35)
[2024-07-29 10:59] LABS: % Basophils 0.5 % (0-2); % Immature Granulocytes 5.5 % (0-0.5); % Lymphocytes 7.2 % (20.5-51.1); % Monocytes 3.6 % (1.7-9.3); % Neutrophils 83.2 % (42.2-75.2); Absolute Basophils 0.1 10^3/uL (0-0.2); Absolute Immature Granulocytes 0.8 10^3/uL (0-0.05); Absolute Lymphocytes 1.1 10^3/uL (1.2-3.4); Absolute Monocytes 0.5 10^3/uL (0.1-0.6); Absolute Neutrophils 12.7 10^3/uL (1.4-6.5); Nucleated Red Blood Cells % 0 %
[2024-07-29 11:30] VITALS: BP 119/61
--- NOTE | 2024-07-29 11:43 | W.PN.ID1 ---
Date of Service
Date of Service: July 29, 2024
Today's Communication
Continue current abx's.
Assessment / Plan
# GPC clusters bacteremia (2 anaerobic bottles)
# Multifocal pneumonia
# Acute hypoxic resp insufficiency
# Leukocytosis
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 (Unvaccinated status)
- At risk for post-influenza PNA with MRSA, MSSA, Strep pneumo, or GAS.
- Repeat blood cx's x 3 pending
- Continue IV Vancomycin (d2). Follow levels.
- Can continue ceftriaxone and azithromycin for now, d3
- Trend wbc.
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
Hypertension
Dyslipidemia
Mild COPD
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
Chief Complaint
-: Pneumonia and Bacteremia
Subjective / Review of Systems
Cough a little bit better today.
Vital Signs / Physical Exam
Vital Signs
Vital Signs
Temp Pulse Resp BP Pulse Ox
97.7 F 84 16 119/59 97
07/29/24 07:05 07/29/24 07:17 07/29/24 07:17 07/29/24 07:05 07/29/24 07:17
Physical Exam
Constitutional: No Acute Distress
Cardiovascular: Regular Rate and S1/S2
Pulmonary: Rales (crackles bilaterally)
Gastrointestinal: Soft, Non Tender, Non Distended and Normal Bowel Sounds
Extremities: Negative Edema
Neurological: AO x 3
Objective Data
Lab Data
Lab Results
07/29/24 08:14
07/29/24 08:14
Estimated Creat Clear 68 ml/min 07/29/24 08:14
Lactic Acid Cancelled 07/27/24 13:15
Total Bilirubin 1.1 mg/dl (0.2-1.3) 03/06/25 10:10
AST 30 U/L (14-36) 07/27/24 10:10
ALT 43 U/L (0-35) H 07/27/24 10:10
Alkaline Phosphatase 118 U/L (38-126) 07/27/24 10:10
Most recent labs reviewed.
Micro Results:
07/29/24 08:14 Blood Culture - Pending
Blood/Venous
07/29/24 03:31 Streptococcus pneumoniae Antigen (M - Final
Urine Negative for Streptococcus pneumoniae antigen.
A negative result does not exclude infection with
Streptococcus pneumoniae. Clinical correlation is
recommended.
07/29/24 03:31 Legionella Urinary Antigen - Final
Urine Negative for Legionella pneumophila Serogroup 1 antigen.
A negative result does not rule out the possiblity of
Legionella infection due to other serogroups or species of
Legionella. Clinical correlation is recommended.
07/28/24 21:39 Blood Culture - Pending
Blood/Venous
07/28/24 21:39 Blood Culture - Pending
Blood/Venous
07/27/24 09:25 Blood Culture - Preliminary
Blood/Venous Positive culture in progress
Gram Stain - Preliminary
07/27/24 09:18 Blood Culture - Preliminary
Blood/Venous Positive culture in progress
Gram Stain - Preliminary
07/27/24 09:25 Influenza Types A & B (SARATH) - Final
Nasal Swab Negative for Influenza A & B, NAAT
Negative results must be combined with clinical observations
and patient history.
Nucleic Acid Amplification test (NAAT)performed on the
[employer] platform.
07/27/[address]: Airspace opacities within the mid to lower lungs bilaterally, morphologic appearance highly suggestive of bilateral pneumonia. No evidence for associated pleural effusion. No evidence for cavitation.
--- NOTE | 2024-07-29 11:48 | W.PN.HOSP.TC ---
Today's Communication/Plan
-
Repeat blood culture
c/w IV Antibiotics
Change Tessalon to TID
reduce steroid
Assessment / Plan
Assessment / Plan
IMPRESSION:
Acute hypoxic respiratory failure
Pneumonia, post influenza, community-acquired. Bilateral infiltrates
Leukocytosis on presentation probably steroid-induced.
Conditions prior to admission:
Hypertension
Dyslipidemia baseline
Obesity due to excessive calories with BMI of 42
PLAN:
Acute hypoxic respiratory failure with pulse ox of 88% on room air.
Multifocal pneumonia/post influenza pneumonia, high risk for staph infection
Bacteremia
Sepsis present on admission with leukocytosis, tachycardia, pneumonia, bacteremia
Continue broad-spectrum antibiotics.
Repeat blood culture
COVID/influenza negative on arrival
Negative Legionella antigen
Continue oxygen supplementation
Appreciate ID help
# Severe persistent cough.
Change Tessalon to [id number], continue with as needed
Reduce steroid, patient is known to have restrictive lung disease,
Antitussives
Incentive spirometry
Inhaled JOEL/JORGE
Okay to continue Advair
#Essential hypertension
Echo with preserved LVEF at 70-75%. Noted with increased pulmonary artery pressure at 40-45 mmHg
Continue oral furosemide at this point.
Continue preadmission regimen including diltiazem losartan, furosemide
# Hyponatremia
Mild, no confusion,
GERD
Continue PPI
Obesity with BMI of 42 aspects affects all aspects of care.
Full code
DVT prophylaxis Lovenox
Total time spent to see the patient, examine the patient, review data and lab results, discuss treatment plan with patient and nursing staff around 55 minutes
Anticipated Discharge: > 48 hours
Subjective/Interval History
-
Date of Service: July 29, 2024
No chest pain
No sob
No fevers
Still with cough
Objective Data
-
Labs:
Laboratory Results
07/29/24
08:14
WBC 15.2 H
Hgb 11.2 L
Hct 34.6 L
Plt Count 348
Sodium 130 L
Potassium 4.3
Chloride 90 L
Carbon Dioxide 28
BUN 31 H
Creatinine 0.8
Glucose 161 H
Calcium 9.5
Vital Signs:
Vital Signs
Temp Pulse Resp BP Pulse Ox
97.7 F 84 16 119/59 97
07/29/24 07:05 07/29/24 07:17 07/29/24 07:17 07/29/24 07:05 07/29/24 07:17
I&O
07/28/24 07/29/24 07/30/24
06:59 06:59 07:59
Intake Total 200 / 200 1320 / 1320 470 / 470
Output Total 350 / 350
Balance 200 / 200 970 / 970 470 / 470
[2024-07-29 16:00] VITALS: BP 116/68
[2024-07-29] MEDS: TESSALON PERLES 200 MG PO ×2 (16:18→21:00)
[2024-07-29] MEDS: LOVENOX 40 MG SC (17:30)
[2024-07-29 19:28] VITALS: BP 129/72
[2024-07-29] MEDS: AMBIEN 5 MG PO (20:57)
[2024-07-29] MEDS: DESENEX/MITRAZOL/ZEASORB 1 APPLIC TOPICAL (20:57)
--- NOTE | 2024-07-29 21:00 | PTCARENOTE ---
Pt stated that she would like to refuse evening VS if she was sleeping, pt has had very poor sleep for weeks. VSS at this time, will continue to round. Pt knows to call nursing staff if she wakes so we can assess vitals.
[2024-07-30] MEDS: ROBITUSSIN AC 10 ML PO ×3 (06:14→21:44)
[2024-07-30] MEDS: VANCOCIN 200 IV (06:31)
[2024-07-30 07:05] VITALS: BP 139/66
[2024-07-30] MEDS: ADVAIR HFA 115/21 MCG INHALER 2 PUFF INH ×2 (07:27→21:03)
[2024-07-30] MEDS: DUONEB 3 ML INH ×3 (07:30→21:05)
[2024-07-30] MEDS: TESSALON PERLES 200 MG PO ×3 (08:36→21:45)
[2024-07-30] MEDS: ZITHROMAX 500 MG PO (08:36)
[2024-07-30] MEDS: CARDIZEM CD 240 MG PO (08:36)
[2024-07-30] MEDS: LASIX 40 MG PO (08:36)
[2024-07-30] MEDS: PROTONIX 40 MG PO (08:37)
[2024-07-30] MEDS: DECADRON 4 MG IV ×2 (08:37→21:45)
[2024-07-30] MEDS: VISBIOME 2 CAP PO (08:37)
[2024-07-30] MEDS: COZAAR 25 MG PO (08:37)
[2024-07-30] MEDS: DESENEX/MITRAZOL/ZEASORB TOPICAL (08:43)
--- NOTE | 2024-07-30 09:22 | PHA.VAN.FU ---
Vancomycin Assessment / Plan
- Assessment
Renal Function: Stable (SCr 0.8)
WBC's are: Trending Down (Last CBC 07/29)
In the past 24 hrs, patient has been: Afebrile
Concomitant Antimicrobials: Ceftriaxone, Azithromycin
- Dosing Plan
Continue: Vanco 1000mg Q12H
- Monitoring Plan
No level(s) ordered at this time: Consider in the next few days
- Follow Up
Pharmacy will continue to follow.
Vancomycin Follow UP
- -
Patient Age: 78
Patient Sex: Female
Vancomycin Day #: 3
Indication: Bacteremia
Requesting Provider: KASHIF
Height / Weight:
Height 5 ft 3 in
Actual Weight 113.806 kg
- Vital Signs / Lab Results
Temp Pulse Resp BP Pulse Ox
97.4 F 82 16 139/66 94
07/30/24 07:05 07/30/24 07:30 07/30/24 07:30 07/30/24 07:05 07/30/24 07:30
Lab Results - Hematology
07/27/24 07/28/24 07/29/24
09:18 05:49 08:14
WBC 20.0 H 17.9 H 15.2 H
Lab Results - Chemistry
07/27/24 07/27/24 07/27/24
09:18 09:43 10:10
BUN Cancelled Cancelled 24 H
Creatinine Cancelled Cancelled 0.8
Estimated Creat Clear Cancelled Cancelled 68
Albumin Cancelled Cancelled 3.4 L
07/28/24 07/29/24
05:49 08:14
BUN 24 H 31 H
Creatinine 0.7 0.8
Estimated Creat Clear 78 68
Albumin
07/27/24 07/27/24
09:18 13:15
Lactic Acid 1.7 Cancelled
Microbiology Results
07/29/24 08:14 Blood Culture - Preliminary
Blood/Venous No Growth in 24 hours- Final report to follow
07/28/24 21:39 Blood Culture - Preliminary
Blood/Venous No Growth in 24 hours- Final report to follow
07/28/24 21:39 Blood Culture - Preliminary
Blood/Venous No Growth in 24 hours- Final report to follow
07/27/24 09:25 Blood Culture - Preliminary
Blood/Venous Staphylococcus aureus
Gram Stain - Preliminary
07/27/24 09:18 Blood Culture - Preliminary
Blood/Venous Staphylococcus aureus
Gram Stain - Preliminary
07/29/24 03:31 Streptococcus pneumoniae Antigen (M - Final
Urine Negative for Streptococcus pneumoniae antigen.
A negative result does not exclude infection with
Streptococcus pneumoniae. Clinical correlation is
recommended.
07/29/24 03:31 Legionella Urinary Antigen - Final
Urine Negative for Legionella pneumophila Serogroup 1 antigen.
A negative result does not rule out the possiblity of
Legionella infection due to other serogroups or species of
Legionella. Clinical correlation is recommended.
--- NOTE | 2024-07-30 09:47 | W.PN.HOSP.TC ---
Addendum entered and electronically signed by Jessie Sepulveda MD 07/30/24 14:48:
Addendum
Tele was reviewed by cardiology, no A fib
End
Original Note:
Today's Communication/Plan
-
c/w IV Abx
Can dc tele.
Assessment / Plan
Assessment / Plan
IMPRESSION:
Acute hypoxic respiratory failure
Pneumonia, post influenza, community-acquired. Bilateral infiltrates
Leukocytosis on presentation probably steroid-induced.
Conditions prior to admission:
Hypertension
Dyslipidemia baseline
Obesity due to excessive calories with BMI of 42
PLAN:
Acute hypoxic respiratory failure with pulse ox of 88% on room air.
Multifocal pneumonia/post influenza pneumonia, high risk for staph infection
Staph Bacteremia
Sepsis present on admission with leukocytosis, tachycardia, pneumonia, bacteremia
Continue broad-spectrum antibiotics.
Repeat blood culture so far negative
COVID/influenza negative on arrival
Negative Legionella antigen
Elevated procalcitonin.
Continue oxygen supplementation
Appreciate ID help
# Severe persistent cough.
Changed Tessalon to [id number], continue with as needed
Reduce steroid, patient is known to have restrictive lung disease,
Antitussives
Incentive spirometry
Inhaled JOEL/JORGE
Okay to continue Advair
# Sinus rhythm with PACs
No A-fib. [facility] showing 2020 history of paroxysmal atrial fibrillation. Patient denied history of A-fib. I also talked to her primary finisher cold rolling Dr. Mcgovern, no history of A-fib. She was given Cardizem for multiple atrial tachycardia.
#Essential hypertension
Echo with preserved LVEF at 70-75%. Noted with increased pulmonary artery pressure at 40-45 mmHg
Continue oral furosemide at this point.
Continue preadmission regimen including diltiazem losartan, furosemide
# Hyponatremia
Mild, no confusion,
GERD
Continue PPI
Obesity with BMI of 42 aspects affects all aspects of care.
Full code
DVT prophylaxis Lovenox
Total time spent to see the patient, examine the patient, review data and lab results, discuss treatment plan with patient and nursing staff around 55 minutes
Anticipated Discharge: > 48 hours
Subjective/Interval History
-
Date of Service: July 30, 2024
Less cough, feels better today
Was able to sleep last night
Objective Data
-
Vital Signs:
Vital Signs
Temp Pulse Resp BP Pulse Ox
97.4 F 82 16 139/66 94
07/30/24 07:05 07/30/24 07:30 07/30/24 07:30 07/30/24 07:05 07/30/24 07:30
I&O
07/29/24 07/30/24 07/31/24
05:59 06:59 06:59
Intake Total
Output Total
Balance
--- NOTE | 2024-07-30 09:56 | W.PN.ID1 ---
Date of Service
Date of Service: July 30, 2024
Today's Communication
Continue Vanco/ceftriaxone.
TTE tomorrow.
Assessment / Plan
# S. aureus bacteremia (2 of 4 bottles)
# Multifocal pneumonia - suspect S. aureus
# Acute hypoxic resp insufficiency
# Leukocytosis
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 (Unvaccinated status)
- Repeat blood cx's x 3 neg to date.
-TTE tomorrow
- Continue IV Vancomycin (d3). Follow levels.
- Can continue ceftriaxone for now, d4
- DC further azithromycin.
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
Hypertension
Dyslipidemia
Mild COPD
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
Chief Complaint
-: Pneumonia and Bacteremia
Subjective / Review of Systems
Voice better. Cough is dry, slightly improved.
Vital Signs / Physical Exam
Vital Signs
Vital Signs
Temp Pulse Resp BP Pulse Ox
97.4 F 82 16 139/66 94
07/30/24 07:05 07/30/24 07:30 07/30/24 07:30 07/30/24 07:05 07/30/24 07:30
Physical Exam
Constitutional: No Acute Distress and Comfortable
Cardiovascular: Regular Rate and S1/S2
Pulmonary: Rales (Bilateral crackles)
Gastrointestinal: Soft, Non Tender, Non Distended and Normal Bowel Sounds
Extremities: Negative Edema
Neurological: AO x 3
Objective Data
Lab Data
Lab Results
07/29/24 08:14
07/29/24 08:14
Estimated Creat Clear 68 ml/min 07/29/24 08:14
Lactic Acid Cancelled 07/27/24 13:15
Total Bilirubin 1.1 mg/dl (0.2-1.3) 07/27/24 10:10
AST 30 U/L (14-36) 07/27/24 10:10
ALT 43 U/L (0-35) H 07/27/24 10:10
Alkaline Phosphatase 118 U/L (38-126) 07/27/24 10:10
Most recent labs reviewed.
Micro Results:
07/27/24 09:18 Blood Culture - Preliminary
Blood/Venous Staphylococcus aureus
Gram Stain - Preliminary
07/29/24 08:14 Blood Culture - Preliminary
Blood/Venous No Growth in 24 hours- Final report to follow
07/30/24 04:58 Blood Culture - Pending
Blood/Venous
07/28/24 21:39 Blood Culture - Preliminary
Blood/Venous No Growth in 24 hours- Final report to follow
07/28/24 21:39 Blood Culture - Preliminary
Blood/Venous No Growth in 24 hours- Final report to follow
07/27/24 09:25 Blood Culture - Preliminary
Blood/Venous Staphylococcus aureus
Gram Stain - Preliminary
07/29/24 03:31 Streptococcus pneumoniae Antigen (M - Final
Urine Negative for Streptococcus pneumoniae antigen.
A negative result does not exclude infection with
Streptococcus pneumoniae. Clinical correlation is
recommended.
07/29/24 03:31 Legionella Urinary Antigen - Final
Urine Negative for Legionella pneumophila Serogroup 1 antigen.
A negative result does not rule out the possiblity of
Legionella infection due to other serogroups or species of
Legionella. Clinical correlation is recommended.
07/27/24 09:25 Influenza Types A & B (SARATH) - Final
Nasal Swab Negative for Influenza A & B, NAAT
Negative results must be combined with clinical observations
and patient history.
Nucleic Acid Amplification test (NAAT)performed on the
[employer] platform.
07/27/[address]: Airspace opacities within the mid to lower lungs bilaterally, morphologic appearance highly suggestive of bilateral pneumonia. No evidence for associated pleural effusion. No evidence for cavitation.
[2024-07-30] MEDS: ROCEPHIN 1000 MG IV (10:55)
[2024-07-30] MEDS: STERILE WATER FOR INJECTION 10 ML IV (10:55)
[2024-07-30 15:04] VITALS: BP 129/70
[2024-07-30] MEDS: ANCEF 10 IV ×2 (16:56→23:54)
[2024-07-30] MEDS: LOVENOX 40 MG SC (16:57)
[2024-07-30] MEDS: AMBIEN 5 MG PO (21:45)
[2024-07-30] MEDS: DESENEX/MITRAZOL/ZEASORB 1 APPLIC TOPICAL (21:46)
[2024-07-31] VITALS (10 sets, daily range): BP systolic 122–236; BP diastolic 60–100
[2024-07-31 07:04] LABS: Hematocrit 32.6 % (37.0-47.0); Hemoglobin 10.9 g/dL (12.0-16.0); Mean Corp Hgb Conc. 33.4 g/dL (33.0-37.0); Mean Corpuscular Hgb 27.5 pg (27.0-31.0); Mean Corpuscular Volume 82.3 fL (81.0-99.0); Mean Platelet Volume 9.4 fL (7.4-10.4); Platelet Count 327 10^3/uL (130-400); Red Blood Cell Count 3.96 10^6/uL (4.20-5.40); Red Cell Dist. Width 14.9 % (11.5-14.5); White Blood Cell Count 10.7 10^3/uL (4.8-10.8)
[2024-07-31 07:26] LABS: Blood Urea Nitrogen 25 mg/dl (7-17); Calcium 9.2 mg/dl (8.4-10.2); Carbon Dioxide 28 mmol/L (22-30); Chloride 95 mmol/L (98-107); Estimated Creatinine Clearance 78 ml/min; Glucose 156 mg/dl (70-99); Potassium 4.5 mmol/L (3.5-5.1); Sodium 132 mmol/L (135-145); eGFR > 60.00
[2024-07-31] MEDS: ADVAIR HFA 115/21 MCG INHALER INH ×3 (07:46→19:51)
[2024-07-31] MEDS: DUONEB 3 ML INH ×3 (07:47→19:51)
[2024-07-31] MEDS: CARDIZEM CD 240 MG PO (08:00)
[2024-07-31] MEDS: VISBIOME 2 CAP PO (08:00)
[2024-07-31] MEDS: DECADRON 4 MG IV ×2 (08:01→21:06)
[2024-07-31] MEDS: TESSALON PERLES 200 MG PO ×3 (08:01→21:06)
[2024-07-31] MEDS: LASIX 40 MG PO (08:01)
[2024-07-31] MEDS: PROTONIX 40 MG PO (08:01)
[2024-07-31] MEDS: COZAAR 25 MG PO (08:01)
[2024-07-31] MEDS: ANCEF 10 IV ×3 (08:01→23:06)
--- NOTE | 2024-07-31 12:06 | CM ---
Addendum entered by Joaquín Palacios 07/31/24 13:55:
Per ID pt will need Cefazolin 2G IV q 8 till 08/12/24.
A referral made to [facility]. Pt's clinical with a script faxed to [facility] at [phone]
Pt referred to [facility] for management IV antibiotics.
Original Note:
CM following re: discharge planning.
Reviewed pt's chart, met with pt.
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
Per MD, continue antibiotics, TTE tomorrow, on room air, continue supportive care.
Pt expressed her desire to return back [facility] at discharge. Pt stated her will transport home.
IMM reviewed, placed on chart, pt has a copy.
D/C plan: home with anticipated no needs. to transport at discharge.
CM will follow with discharge plan updates as hospitalization progresses
--- NOTE | 2024-07-31 12:27 | W.PN.HOSP.TC ---
Today's Communication/Plan
-
Assessment / Plan
Assessment / Plan
Gen-AAOx3, NAD
HEENT-NC, AT, anicteric, clear oral mm
Neck-supple
CV-reg, no M, +S1/S2
Lungs-mild expiratory wheezing
Abd-soft, NT, ND
Musculoskeletal-no edema, no deformity
Skin-warm and dry
Neuro-grossly non-focal
Psych-calm, cooperative
IMPRESSION:
Acute hypoxic respiratory failure
Pneumonia, post influenza, community-acquired. Bilateral infiltrates
Leukocytosis on presentation probably steroid-induced.
Conditions prior to admission:
Hypertension
Dyslipidemia baseline
Obesity due to excessive calories with BMI of 42
PLAN:
#Acute hypoxic respiratory failure:
-Resolved, now saturating appropriately on room air
-Secondary to multifocal pneumonia, treating with Ancef, recent influenza infection
-Continue breathing treatments and steroids
#Staph Bacteremia:
-Sepsis present on admission with leukocytosis, tachycardia, pneumonia, bacteremia
-Blood cultures growing MSSA, continue treatment with Ancef
-Repeat blood cultures negative to date
-Will follow-up with ID regarding further recommendations
# Severe persistent cough.
-Now on Tessalon [id number], continue with as needed
-Reduce steroid, patient is known to have restrictive lung disease,
-Guaifenesin with codeine at night
-Incentive spirometry
-Inhaled JOEL/JORGE
-Okay to continue Advair
# Sinus rhythm with PACs
-No A-fib. [facility] showing 2020 history of paroxysmal atrial fibrillation. Patient denied history of A-fib. talked to her primary director building Dr. Mcgovern, no history of A-fib. She was given Cardizem for multiple atrial tachycardia.
#Essential hypertension
Echo with preserved LVEF at 70-75%. Noted with increased pulmonary artery pressure at 40-45 mmHg
Continue oral furosemide at this point.
Continue preadmission regimen including diltiazem losartan, furosemide
# Hyponatremia
Mild, no confusion,
GERD
Continue PPI
Obesity with BMI of 42 aspects affects all aspects of care.
Full code
DVT prophylaxis Lovenox
Anticipated Discharge: 24 - 48 hours
Subjective/Interval History
-
Date of Service: July 31, 2024
Patient was seen and examined at bedside this morning. In good spirits but getting very little sleep due to incessant coughing despite Tessalon Perles and guaifenesin with codeine. Repeat blood cultures remain negative to date.
Objective Data
-
Labs:
Laboratory Results
07/31/24
06:30
WBC 10.7
Hgb 10.9 L
Hct 32.6 L
Plt Count 327
Sodium 132 L
Potassium 4.5
Chloride 95 L
Carbon Dioxide 28
BUN 25 H
Creatinine 0.7
Glucose 156 H
Calcium 9.2
Vital Signs:
Vital Signs
Temp Pulse Resp BP Pulse Ox
97.4 F 80 18 129/88 95
07/31/24 07:30 07/31/24 07:49 07/31/24 07:49 07/31/24 07:30 07/31/24 07:49
I&O
07/30/24 07/31/24 08/01/24
06:59 06:59 06:59
Intake Total 1739
Output Total
Balance 1739
Review of Systems
-
History Source: Patient
Respiratory: Reports Cough
Physical Exam
-
General: No Apparent Distress
--- NOTE | 2024-07-31 12:37 | W.PN.ID1 ---
Date of Service
Date of Service: July 31, 2024
Today's Communication
- Cefazolin 2g IVq8h through 08/12/24.
Follow weekly CBC, CMP
- Place midline.
-Home infusion sheet submitted to Case Management.
Assessment / Plan
# Uncomplicated S. aureus (MSSA) bacteremia (2 of 4 bottles)
# Multifocal pneumonia - from S. aureus
# Acute hypoxic resp insufficiency
# Leukocytosis - resolved
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 (Unvaccinated status)
- Repeat blood cx's x 3 neg to date.
-TTE on 07/27 no gross vegetation
-Changed Vanco/ceftriaxone to cefazolin.
- Cefazolin 2g IVq8h through 08/12/24.
Follow weekly CBC, CMP
- Place midline.
-Home infusion sheet submitted to Case Management.
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
Hypertension
Dyslipidemia
Mild COPD
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
Chief Complaint
-: Pneumonia and Bacteremia
Subjective / Review of Systems
Continues to feel better.
Vital Signs / Physical Exam
Vital Signs
Vital Signs
Temp Pulse Resp BP Pulse Ox
97.4 F 80 18 129/88 95
07/31/24 07:30 07/31/24 07:49 07/31/24 07:49 07/31/24 07:30 07/31/24 07:49
Physical Exam
Constitutional: No Acute Distress
Pulmonary: Wheezes (mild ) and Rales (crackles L>R)
Gastrointestinal: Soft, Non Tender and Non Distended
Neurological: AO x 3
Objective Data
Lab Data
Lab Results
07/31/24 06:30
07/31/24 06:30
Estimated Creat Clear 78 ml/min 07/31/24 06:30
Lactic Acid Cancelled 07/27/24 13:15
Total Bilirubin 1.1 mg/dl (0.2-1.3) 07/27/24 10:10
AST 30 U/L (14-36) 07/27/24 10:10
ALT 43 U/L (0-35) H 07/27/24 10:10
Alkaline Phosphatase 118 U/L (38-126) 07/27/24 10:10
Most recent labs reviewed.
Micro Results:
07/29/24 08:14 Blood Culture - Preliminary
Blood/Venous No Growth in 48 hours- Final report to follow
07/30/24 04:58 Blood Culture - Preliminary
Blood/Venous No Growth in 24 hours- Final report to follow
07/28/24 21:39 Blood Culture - Preliminary
Blood/Venous No Growth in 48 hours- Final report to follow
07/28/24 21:39 Blood Culture - Preliminary
Blood/Venous No Growth in 48 hours- Final report to follow
07/27/24 09:25 Blood Culture - Preliminary
Blood/Venous S aureus-Methicillin Sensitive
Gram Stain - Preliminary
07/27/24 09:18 Blood Culture - Preliminary
Blood/Venous S aureus-Methicillin Sensitive
Gram Stain - Preliminary
07/29/24 03:31 Streptococcus pneumoniae Antigen (M - Final
Urine Negative for Streptococcus pneumoniae antigen.
A negative result does not exclude infection with
Streptococcus pneumoniae. Clinical correlation is
recommended.
07/29/24 03:31 Legionella Urinary Antigen - Final
Urine Negative for Legionella pneumophila Serogroup 1 antigen.
A negative result does not rule out the possiblity of
Legionella infection due to other serogroups or species of
Legionella. Clinical correlation is recommended.
07/27/24 09:25 Influenza Types A & B (SARATH) - Final
Nasal Swab Negative for Influenza A & B, NAAT
Negative results must be combined with clinical observations
and patient history.
Nucleic Acid Amplification test (NAAT)performed on the
[employer] platform.
07/27/[address]: Airspace opacities within the mid to lower lungs bilaterally, morphologic appearance highly suggestive of bilateral pneumonia. No evidence for associated pleural effusion. No evidence for cavitation.
[2024-07-31] MEDS: APRESOLINE 10 MG IV (15:31)
[2024-07-31] MEDS: DESENEX/MITRAZOL/ZEASORB TOPICAL ×2 (16:45→21:07)
--- NOTE | 2024-07-31 16:49 | PTCARENOTE ---
1500 VS obtained- BP 199/100 and repeat BP up to 236/110. Pt. complaining of headache and feeling like her ears are fluid filled and hot. Pt. states she had been briefly dizzy earlier but is not dizzy now. PRN hydralazine given. BP came down to
157/81, but pt. now complaining of chest pain. EKG and stat trop ordered. EKG-NSR and trop pending. Pt. says her headache is improving.
[2024-07-31 16:50] LABS: Troponin I < 0.012 ng/ml
[2024-07-31] MEDS: LOVENOX 40 MG SC (17:09)
[2024-07-31 20:35] LABS: Troponin I < 0.012 ng/ml
[2024-07-31] MEDS: AMBIEN PO (21:05)
[2024-07-31] MEDS: ROBITUSSIN AC 10 ML PO (21:06)
[2024-07-31] MEDS: TYLENOL 1000 MG PO (21:06)
[2024-07-31] MEDS: AMBIEN 5 MG PO (21:44)
[2024-08-01 03:00] VITALS: BP 129/66
[2024-08-01 07:36] VITALS: BP 119/68
[2024-08-01] MEDS: ADVAIR HFA 115/21 MCG INHALER INH ×2 (07:49→19:27)
[2024-08-01] MEDS: ROBITUSSIN AC 10 ML PO ×3 (08:25→21:50)
[2024-08-01] MEDS: ANCEF 10 IV ×2 (08:25→16:07)
[2024-08-01] MEDS: LASIX 40 MG PO (08:25)
[2024-08-01] MEDS: VISBIOME 2 CAP PO (08:25)
[2024-08-01] MEDS: TESSALON PERLES 200 MG PO ×3 (08:25→21:51)
[2024-08-01] MEDS: COZAAR 25 MG PO (08:26)
[2024-08-01] MEDS: DESENEX/MITRAZOL/ZEASORB 1 APPLIC TOPICAL ×2 (08:26→20:28)
[2024-08-01] MEDS: CARDIZEM CD 240 MG PO (08:26)
[2024-08-01] MEDS: DECADRON 4 MG IV ×2 (08:26→20:31)
[2024-08-01] MEDS: PROTONIX 40 MG PO (08:27)
[2024-08-01] MEDS: FLUSH (NSS) 2 FLUSH IV ×2 (08:28→16:07)
[2024-08-01 10:39] VITALS: BP 115/78
[2024-08-01 15:11] VITALS: BP 124/59
--- NOTE | 2024-08-01 17:00 | CM ---
Received call from Michaela at [facility] who stated that patient's seems like it is no longer active. Spoke with patient who stated that it is. Will determine when insurance terms.
Plan: Case management will continue to follow and assist with discharge planning. Home with IV ABX
--- NOTE | 2024-08-01 17:12 | W.PN.ID1 ---
Date of Service
Date of Service: August 01, 2024
Today's Communication
Continue cefazolin.
When Home IV set up, dc home.
Assessment / Plan
# Uncomplicated S. aureus (MSSA) bacteremia (2 of 4 bottles)
# Multifocal pneumonia - from S. aureus
# Acute hypoxic resp insufficiency resolved
# Leukocytosis - resolved
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 (Unvaccinated status)
- Repeat blood cx's x 3 neg to date.
-TTE on 07/27 no gross vegetation
- Continue Cefazolin 2g IVq8h through 08/12/24.
Follow weekly CBC, CMP
- Midline in place.
-Home infusion sheet submitted to Case Management 07/31/24
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
Hypertension
Dyslipidemia
Mild COPD
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
Chief Complaint
-: Pneumonia and Bacteremia
Subjective / Review of Systems
Cough much better.
Vital Signs / Physical Exam
Vital Signs
Vital Signs
Temp Pulse Resp BP Pulse Ox
97.7 F 74 18 124/59 95
08/01/24 15:11 08/01/24 15:11 08/01/24 15:11 08/01/24 15:11 08/01/24 15:11
Physical Exam
Constitutional: No Acute Distress and Comfortable
Pulmonary: Rales (bilateral crackles decreased)
Gastrointestinal: Soft, Non Tender and Non Distended
Extremities: Negative Edema
Objective Data
Lab Data
Lab Results
07/31/24 06:30
07/31/24 06:30
Estimated Creat Clear 78 ml/min 07/31/24 06:30
Lactic Acid Cancelled 07/27/24 13:15
Total Bilirubin 1.1 mg/dl (0.2-1.3) 07/27/24 10:10
AST 30 U/L (14-36) 07/27/24 10:10
ALT 43 U/L (0-35) H 07/27/24 10:10
Alkaline Phosphatase 118 U/L (38-126) 07/27/24 10:10
Most recent labs reviewed.
Micro Results:
07/29/24 08:14 Blood Culture - Preliminary
Blood/Venous No Growth in 72 hours- Final report to follow
07/30/24 04:58 Blood Culture - Preliminary
Blood/Venous No Growth in 48 hours- Final report to follow
07/28/24 21:39 Blood Culture - Preliminary
Blood/Venous No Growth in 72 hours- Final report to follow
07/28/24 21:39 Blood Culture - Preliminary
Blood/Venous No Growth in 72 hours- Final report to follow
07/27/24 09:25 Blood Culture - Preliminary
Blood/Venous S aureus-Methicillin Sensitive
Gram Stain - Preliminary
07/27/24 09:18 Blood Culture - Preliminary
Blood/Venous S aureus-Methicillin Sensitive
Gram Stain - Preliminary
07/29/24 03:31 Streptococcus pneumoniae Antigen (M - Final
Urine Negative for Streptococcus pneumoniae antigen.
A negative result does not exclude infection with
Streptococcus pneumoniae. Clinical correlation is
recommended.
07/29/24 03:31 Legionella Urinary Antigen - Final
Urine Negative for Legionella pneumophila Serogroup 1 antigen.
A negative result does not rule out the possiblity of
Legionella infection due to other serogroups or species of
Legionella. Clinical correlation is recommended.
07/27/24 09:25 Influenza Types A & B (SARATH) - Final
Nasal Swab Negative for Influenza A & B, NAAT
Negative results must be combined with clinical observations
and patient history.
Nucleic Acid Amplification test (NAAT)performed on the
[employer] platform.
07/27/[address]: Airspace opacities within the mid to lower lungs bilaterally, morphologic appearance highly suggestive of bilateral pneumonia. No evidence for associated pleural effusion. No evidence for cavitation.
[2024-08-01] MEDS: LOVENOX 40 MG SC (17:23)
[2024-08-01] MEDS: AMBIEN 5 MG PO (21:50)
[2024-08-01 23:16] VITALS: BP 115/61
[2024-08-02] MEDS: ANCEF 10 IV ×3 (00:03→15:04)
[2024-08-02 07:19] VITALS: BP 143/75
[2024-08-02] MEDS: LASIX 40 MG PO (07:33)
[2024-08-02] MEDS: DECADRON 4 MG IV (07:33)
[2024-08-02] MEDS: CARDIZEM CD 240 MG PO (07:33)
[2024-08-02] MEDS: PROTONIX 40 MG PO (07:33)
[2024-08-02] MEDS: COZAAR 25 MG PO (07:33)
[2024-08-02] MEDS: TESSALON PERLES 200 MG PO ×2 (07:33→15:04)
[2024-08-02] MEDS: ROBITUSSIN AC 10 ML PO ×2 (07:45→15:10)
[2024-08-02] MEDS: ADVAIR HFA 115/21 MCG INHALER INH (07:49)
[2024-08-02] MEDS: VISBIOME 2 CAP PO (08:15)
[2024-08-02] MEDS: DESENEX/MITRAZOL/ZEASORB 1 APPLIC TOPICAL (08:16)
--- NOTE | 2024-08-02 12:29 | CM ---
Addendum entered by NEY Quevedo 08/02/24 14:34:
Michaela from [facility] in to see patient. She confirmed that patient has everything she needs for discharge.
Original Note:
Placed a call to admissions and spoke with Mignon who verified that they have the [facility] as active. She sent an email to confirming this. Called Michaela at [facility] however she stated that as the email will be encrypted, she will not
be able to open it.
Met with patient and explanation was provided to her that [facility] is not seeing her as active.
She provided card. Faxed that over to Michaela who stated that she will be in soon to see patient and she should have everything set up so that patient can go home tonight (She stated that [facility] will most likely be in tomrrow however, she will
show patient how to do the ABX independently.
IMM reviewed, signed and on chart.
Plan: Case management will continue to follow and assist with discharge planning. Home with [facility] and [facility].
--- NOTE | 2024-08-02 14:55 | W.PN.ID1 ---
Date of Service
Date of Service: August 02, 2024
Today's Communication
DC home today.
Assessment / Plan
# Uncomplicated S. aureus (MSSA) bacteremia (2 of 4 bottles)
# Multifocal pneumonia - from S. aureus
# Acute hypoxic resp insufficiency resolved
# Leukocytosis - resolved
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 (Unvaccinated status)
- Repeat blood cx's x 3 neg
-TTE on 07/27 no gross vegetation
- Continue Cefazolin 2g IVq8h through 08/12/24.
Follow weekly CBC, CMP
- Midline in place.
-Home infusion sheet submitted to Case Management 07/31/24
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
Hypertension
Dyslipidemia
Mild COPD
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
Chief Complaint
-: Pneumonia and Bacteremia
Subjective / Review of Systems
Eager to go home after 3PM dose cefazolin. Feeling better overall.
Vital Signs / Physical Exam
Vital Signs
Vital Signs
Temp Pulse Resp BP Pulse Ox
97.6 F 75 17 143/75 97
08/02/24 07:19 08/02/24 07:19 08/02/24 07:19 08/02/24 07:19 08/02/24 07:19
Physical Exam
Constitutional: No Acute Distress and Comfortable
Pulmonary: Rales (Mild crackles bilateral bases)
Gastrointestinal: Soft, Non Tender and Non Distended
Neurological: AO x 3
Lines: Other (LUE midline intact)
Objective Data
Lab Data
Lab Results
07/31/24 06:30
07/31/24 06:30
Estimated Creat Clear 78 ml/min 07/31/24 06:30
Lactic Acid Cancelled 07/27/24 13:15
Total Bilirubin 1.1 mg/dl (0.2-1.3) 07/27/24 10:10
AST 30 U/L (14-36) 07/27/24 10:10
ALT 43 U/L (0-35) H 07/27/24 10:10
Alkaline Phosphatase 118 U/L (38-126) 07/27/24 10:10
Most recent labs reviewed.
Micro Results:
07/29/24 08:14 Blood Culture - Preliminary
Blood/Venous No Growth in 4 days- Final report to follow
07/30/24 04:58 Blood Culture - Preliminary
Blood/Venous No Growth in 72 hours- Final report to follow
07/28/24 21:39 Blood Culture - Preliminary
Blood/Venous No Growth in 4 days- Final report to follow
07/28/24 21:39 Blood Culture - Preliminary
Blood/Venous No Growth in 4 days- Final report to follow
07/27/24 09:25 Blood Culture - Preliminary
Blood/Venous S aureus-Methicillin Sensitive
Gram Stain - Preliminary
07/27/24 09:18 Blood Culture - Preliminary
Blood/Venous S aureus-Methicillin Sensitive
Gram Stain - Preliminary
07/29/24 03:31 Streptococcus pneumoniae Antigen (M - Final
Urine Negative for Streptococcus pneumoniae antigen.
A negative result does not exclude infection with
Streptococcus pneumoniae. Clinical correlation is
recommended.
07/29/24 03:31 Legionella Urinary Antigen - Final
Urine Negative for Legionella pneumophila Serogroup 1 antigen.
A negative result does not rule out the possiblity of
Legionella infection due to other serogroups or species of
Legionella. Clinical correlation is recommended.
07/27/24 09:25 Influenza Types A & B (SARATH) - Final
Nasal Swab Negative for Influenza A & B, NAAT
Negative results must be combined with clinical observations
and patient history.
Nucleic Acid Amplification test (NAAT)performed on the
[employer] platform.
07/27/[address]: Airspace opacities within the mid to lower lungs bilaterally, morphologic appearance highly suggestive of bilateral pneumonia. No evidence for associated pleural effusion. No evidence for cavitation.
--- NOTE | 2024-08-02 14:55 | W.DCSUMMARY ---
Discharge Summary
Discharge Data
Date of Admission: 07/27/24
Date of Discharge: 08/02/24
-
Pending Results: No
Hospital Course
Ms. Agudelo is a 78-year-old female with a medical history of hypertension, dyslipidemia, and recent influenza infection who presented with persistent shortness of breath. She was found to have superimposed bacterial pneumonia and bacteremia with
methicillin sensitive Staph aureus. She was started on antibiotic treatment with cefazolin 2 g IV every 8 hours which she will continue at home via midline through 08/12/2024. Repeat blood cultures have been negative to date. Echocardiogram shows
no overt evidence of vegetations. She has clinically improved and is medically stable for discharge to home. Home infusion services have been arranged. She will need close follow-up with her primary care physician and with infectious disease team
in the outpatient setting. She initially required supplemental oxygen via nasal cannula but was able to be weaned to room air and was breathing comfortably. She does have a persistent cough and will be given a prescription for a cough suppressant
to be taken as needed. She will also be given a prescription for a steroid taper.
Gen-AAOx3, NAD
HEENT-NC, AT, anicteric, clear oral mm
Neck-supple
CV-reg, no M, +S1/S2
Lungs-mild expiratory wheezing
Abd-soft, NT, ND
Musculoskeletal-no edema, no deformity
Skin-warm and dry
Neuro-grossly non-focal
Psych-calm, cooperative
Discharge Plan
-
Patient Disposition: Home with Home Care
Discharge Diagnosis/Procedures: Multifocal pneumonia due to Staph aureus, MSSA bacteremia
Diet: No restrictions
Activity: As tolerated
Other Services: VN
Activity Restrictions/Additional Instructions:
Ms. Agudelo is a 78-year-old female with a medical history of hypertension, dyslipidemia, and recent influenza infection who presented with persistent shortness of breath. She was found to have superimposed bacterial pneumonia and bacteremia with
methicillin sensitive Staph aureus. She was started on antibiotic treatment with cefazolin 2 g IV every 8 hours which she will continue at home via midline through 08/12/2024. Repeat blood cultures have been negative to date. Echocardiogram shows
no overt evidence of vegetations. She has clinically improved and is medically stable for discharge to home. Home infusion services have been arranged. She will need close follow-up with her primary care physician and with infectious disease team
in the outpatient setting. She initially required supplemental oxygen via nasal cannula but was able to be weaned to room air and was breathing comfortably. She does have a persistent cough and will be given a prescription for a cough suppressant
to be taken as needed. She will also be given a prescription for a steroid taper.
Referrals:
Christiano Mendoza MD [Family Provider] -
Beatriz Dickson MD [Active] -
Prescriptions:
New
cefazolin 10 gram Recon Soln
2 g IV Q8H Qty: 30 0RF
codeine-guaifenesin 10-100 mg/5 mL Liquid
10 ml PO Q4HPRN PRN (Reason: cough) Qty: 1 0RF
methylprednisolone [Medrol (Cameron)] 4 mg tablets,dose pack
See Rx Instructions .ROUTE .COMPLEX Qty: 21 0RF
Rx Instructions:
for 6 days
Continued
acetaminophen [Tylenol Extra Strength] 500 MG tablet
1,000 mg PO Q4HPRN PRN (Reason: MILD pain)
Patient Comments:
diltiazem HCl 240 MG capsule,extended release 24hr
240 mg PO DAILY
pantoprazole 40 MG tablet,delayed release (DR/EC)
40 mg PO DAILY
furosemide [Lasix] 40 mg Tablet
40 mg PO DAILY
losartan 25 mg Tablet
25 mg PO DAILY
zolpidem [Ambien] 5 mg Tablet
5 mg PO HS
albuterol sulfate 90 mcg/actuation Hfa Aerosol Inhaler
2 puff INHALATION R Q6HPRN PRN (Reason: sob)
Atrovent HFA 17 mcg/actuation Hfa Aerosol Inhaler
2 puff INHALATION R Q6HPRN PRN (Reason: sob)
fluticasone propion-salmeterol [Advair HFA] 115-21 mcg/actuation Hfa Aerosol Inhaler
2 puff INHALATION R BID
Changed
benzonatate 100 mg Capsule
200 mg PO TIDPRN PRN (Reason: cough) Qty: 20 0RF
Held
Zepbound 5 mg/0.5 mL Pen Injector
5 mg SC WE
Hold Instructions: Hold until follow-up with your primary care physician
Discontinued
promethazine-DM 6.25-15 mg/5 mL Syrup
5 ml PO Q6HPRN PRN (Reason: cough)
prednisone 20 mg Tablet
60 mg PO DIRECTED
Rx Instructions:
start on 07/24/24 take 60mg daily for 2 days then 40mg daily for 3 day then 20mg daily for 3 days
Discharge Orders:
Discharge Patient (As Directed); Ordered 08/02/24
Ordered By: Olivier Bui
Discharge Date and Time
Print Language: JAMAICAN
[2024-08-02 15:07] VITALS: BP 112/67
--- NOTE | 2024-08-02 16:33 | W.PN.HOSP.TC ---
Today's Communication/Plan
-
Assessment / Plan
Assessment / Plan
Gen-AAOx3, NAD
HEENT-NC, AT, anicteric, clear oral mm
Neck-supple
CV-reg, no M, +S1/S2
Lungs-mild expiratory wheezing
Abd-soft, NT, ND
Musculoskeletal-no edema, no deformity
Skin-warm and dry
Neuro-grossly non-focal
Psych-calm, cooperative
IMPRESSION:
Acute hypoxic respiratory failure
Pneumonia, post influenza, community-acquired. Bilateral infiltrates
Leukocytosis on presentation probably steroid-induced.
Conditions prior to admission:
Hypertension
Dyslipidemia baseline
Obesity due to excessive calories with BMI of 42
PLAN:
#Acute hypoxic respiratory failure:
-Resolved, now saturating appropriately on room air
-Secondary to multifocal pneumonia, treating with Ancef, recent influenza infection
-Continue breathing treatments and steroids
#Staph Bacteremia:
-Sepsis present on admission with leukocytosis, tachycardia, pneumonia, bacteremia
-Blood cultures growing MSSA, continue treatment with Ancef
-Repeat blood cultures negative to date
-Planning home infusions of cefazolin through 08/12/24, arrangements pending
# Severe persistent cough.
-Improving, now on Tessalon [id number]
-Reduce steroid, patient is known to have restrictive lung disease
-Guaifenesin with codeine at night
-Incentive spirometry
-Inhaled JOEL/JORGE
-Okay to continue Advair
# Sinus rhythm with PACs
-No A-fib. [facility] showing 2020 history of paroxysmal atrial fibrillation. Patient denied history of A-fib. talked to her primary pickling operator Dr. Mcgovern, no history of A-fib. She was given Cardizem for multiple atrial tachycardia.
#Essential hypertension
Echo with preserved LVEF at 70-75%. Noted with increased pulmonary artery pressure at 40-45 mmHg
Continue oral furosemide at this point.
Continue preadmission regimen including diltiazem losartan, furosemide
# Hyponatremia
Mild, no confusion, clinically insignificant
GERD
Continue PPI
Obesity with BMI of 42
Full code
DVT prophylaxis Lovenox
Anticipated Discharge: 24 - 48 hours
Subjective/Interval History
-
Date of Service: August 01, 2024
Patient was seen and examined at bedside this morning. Intermittent cough remains although much improved. Breathing comfortably on room air. Awaiting home antibiotic infusion arrangements. Medically stable for discharge otherwise.
Objective Data
-
Vital Signs:
Vital Signs
Temp Pulse Resp BP Pulse Ox
98.0 F 79 17 112/67 97
08/02/24 15:07 08/02/24 15:07 08/02/24 15:07 08/02/24 15:07 08/02/24 15:07
I&O
08/01/24 08/02/24 08/03/24
06:59 06:59 06:59
Intake Total 1680 / 1680 2400 / 2400
Balance 1680 / 1680 2400 / 2400
Review of Systems
-
History Source: Patient
All other systems: Reviewed and negative
Respiratory: Reports Cough
Physical Exam
-
General: No Apparent Distress
== END 2024-08-02 16:20 | disposition home health service (06) | DRG 871 ==
LOC: 3 WEST ACU 11:58
PROVIDERS: ADMITTING PHYSICIAN Internal Medicine; ATTENDING PHYSICIAN Internal Medicine; CONSULT PHYSICIAN Internal Medicine Infectious Disease; EMERGENCY PHYSICIAN Emergency Medicine; FAMILY PHYSICIAN Family Medicine
DX: A41.9 Sepsis, unspecified organism (principal); J15.211 Pneumonia due to Methicillin susceptible Staphylococcus aureus; J96.01 Acute respiratory failure with hypoxia; J44.0 Chronic obstructive pulmonary disease with (acute) lower respiratory infection; N39.0 Urinary tract infection, site not specified; Z68.41 Body mass index [BMI] 40.0-44.9, adult; E87.1 Hypo-osmolality and hyponatremia; Z87.891 Personal history of nicotine dependence; Z11.52 Encounter for screening for COVID-19; T38.0X5A Adverse effect of glucocorticoids and synthetic analogues, initial encounter; I10 Essential (primary) hypertension; K21.9 Gastro-esophageal reflux disease without esophagitis; E66.813 Obesity, class 3; I70.0 Atherosclerosis of aorta; Z79.899 Other long term (current) drug therapy
CPT/HCPCS: 71046; 71275; 80048; 80053; 83605; 83735; 83880; 84145; 84484; 85025; 85027; 85379; 87040; 87147; 87186; 87205; 87449; 87502; 87811; 87899; 93005; 93306; 94640; 96374; 96375; 99285; Q9950; Q9967

== ENCOUNTER → 2024-08-15 13:19 | Outpatient (REF) | payer MEDICARE, OTHER, SELFPAY | LOC: RAD 13:19 | PROVIDERS: ATTENDING PHYSICIAN Family Medicine | DX: M25.551 Pain in right hip (principal) | CPT/HCPCS: 72110; 73522; 73552 ==

== ENCOUNTER 2024-11-20 10:52 | Emergency (ER) | payer MEDICARE, OTHER, SELFPAY ==
[2024-11-20 10:59] VITALS: BP 125/85
--- NOTE | 2024-11-20 12:29 | ED.GENMED ---
History of Present Illness
General
Chief Complaint: Abdominal Symptoms
Source: patient
Exam Limitations: none
Time Seen by Provider: 11/20/24 11:32
Nursing documentation reviewed up to this point in time: agreed with
History of Present Illness
History of Present Illness:
79 y/o F with h/o
previous hemorrhagic colitis, diverticulitis, htn, hld
says she is having diarrhea for the past 15 days
she previously in july had strep bacteremia and was on IV abx cefazolin for weeks
then in september she had a round of macrobid for UTI and was switched to augmentin which she finished 15 days ago. the day she finished, she had diarrhea start. having 10-15 episodes some days, watery, not bloody diarrhea
some pain in her L abdomen at times
no vomiting, fever, chills
she is eating less becuase she will have to have diarrhea
she started difficid despite neg c diff culture 10 days ago and completed that today
she is here becuase syptoms are continuing
she is not worse today
Past History
Past History
ED Past Medical History: HTN, Hypercholesterolemia, Other (Diverticulosis) and Other (Pylelonephritis)
ED Past Surgical History: Appendectomy, Gynecological (Right oophorectomy), Orthopedic and Other (Right breast lumpectomy)
Social History
Tobacco: Former smoker
Alcohol: Occasional
Drug: None
Personal:
Living: with family
Employment: Employed
Family History
Family History: Other (No significant)
Review of Systems
Review of Systems
Allergies reviewed?: Yes
All Other Systems: Not applicable
Phy Exam
Physical Exam
Physical Exam:
GENERAL: Alert , in no apparent distress
EYE: pupils equal and reactive
NECK: Supple
ENT: o/p clr, mmm.
CARDIAC: Regular rate and rhythm .
LUNGS: Clear breath sounds bilaterally, no acute respiratory distress, no wheezes/rales/rhonchi
ABDOMEN: Soft, without focal tenderness, no r/g, no cvat, normal bowel sounds
NEUROLOGICAL: Alert and oriented, no focal neuro deficits
SKIN: Warm and dry, skin intact.
MUSCULOSKELETAL: No edema, well perfused. neg linda's sign
PSYCH: Normal and appropriate interaction.
Course
Orders/Labs/Results
Orders:
Orders
11/20/24 12:02
CT Abd/Pel (IV only)-DH only Urgent
Comment:
Reason For Exam: severe diarrhea llq pain
0.9% Sodium Chloride 500 ml [Nss] 500 ml IV BOLUS
11/20/24 12:31
Complete Blood Count/With Diff Urgent
Comprehensive Metabolic Panel Urgent
Lactic Acid Urgent
Lipase Urgent
Magnesium Urgent
11/20/24 14:59
C DIFF [C difficile Antigen & Toxins] Urgent
[facility] Source: Feces/Stool
Specimen Description:
Date Specimen was Collected: 11/20/24
Time Specimen was Collected: 14:58
Giardia/Cryptosporidium Ag Urgent
[facility] Source: ST
Specimen Description:
Date Specimen was Collected: 11/20/24
Time Specimen was Collected: 14:58
Comment: Add on per Keli Kearney PA-C
Stool Culture Urgent
[facility] Source: Feces/Stool
Specimen Description:
Date Specimen was Collected: 11/20/24
Time Specimen was Collected: 14:58
11/20/24 16:08
Add On - Microbiology Urgent
Tests Added?: ova and parasites to stool
Abnormal Lab Results
11/20/24
12:31
MCHC 32.4 L g/dL
(33.0-37.0)
RDW 14.9 H %
(11.5-14.5)
Lymphocytes % 14.3 L %
(20.5-51.1)
11/20/24 12:31
11/20/24 12:31
Vital Signs
Initial and Last Documented VS:
Initial Vital Signs
Temp Pulse Resp BP Pulse Ox
36.7 C 98 16 125/85 98
11/20/24 10:59 11/20/24 10:59 11/20/24 10:59 11/20/24 10:59 11/20/24 10:59
Last Documented Vital Signs
Temp Pulse Resp BP Pulse Ox
36.7 C 80 16 120/68 98
11/20/24 10:59 11/20/24 16:56 11/20/24 12:00 11/20/24 16:56 11/20/24 16:56
MDM/Problems Addressed
Differential Diagnosis Includes:
colitis, c diff, ibs, diverticulitis
MDM/Problems Addressed:
79 y/o F
15 days diarrhea
intermittent L sided pain
no fever/chills, vomiting, bloody stool
pt has already had c diff treatment despite neg c diff testing
pt has not seen GI for this but has seen GI previously while hospitaized
wbc normal
albumin normal
lytes normal
ct shows sheila descending colitis
normal lactic
pt was able to provide 1 stool here, did not have others
given IVF
c diff neg
pending stool culture, will hold abx for now
i spoke with sewing techniques demonstrator PCP who is aware ofthis and will f/u with pt
*Pulse Oximetry
SaO2: 98
Patient hypoxic: no (98)
*Critical Care Note
Total Time (30-74mins, 75-104mins- exclusive of procedures): Not Applicable
ED Attending Note
-
Portions of this chart may have been created with voice recognition software.� Occasional wrong word or��sound alike� substitutions may have occurred due to the inherent limitations of voice recognition software.
Discharge Plan
Departure
Patient Disposition: Home (Routine Discharge)
Date of Disposition: 11/20/24
Time of Disposition: 16:42
Patient with high blood pressure during this ER visit?: No
Condition: Fair
Covid-19: Not Applicable
Discharge Problem:
Diarrhea
Instructions: Diarrhea in teens and adults, Miner Diet
Prescriptions:
No Action
acetaminophen [Tylenol Extra Strength] 500 MG tablet
1,000 mg PO Q4HPRN PRN (Reason: MILD pain)
Patient Comments:
diltiazem HCl 240 MG capsule,extended release 24hr
240 mg PO DAILY
pantoprazole 40 MG tablet,delayed release (DR/EC)
40 mg PO DAILY
furosemide [Lasix] 40 mg Tablet
40 mg PO DAILY
losartan 25 mg Tablet
25 mg PO DAILY
zolpidem [Ambien] 5 mg Tablet
5 mg PO HS
albuterol sulfate 90 mcg/actuation Hfa Aerosol Inhaler
2 puff INHALATION R Q6HPRN PRN (Reason: sob)
Atrovent HFA 17 mcg/actuation Hfa Aerosol Inhaler
2 puff INHALATION R Q6HPRN PRN (Reason: sob)
fluticasone propion-salmeterol [Advair HFA] 115-21 mcg/actuation Hfa Aerosol Inhaler
2 puff INHALATION R BID
Zepbound 5 mg/0.5 mL Pen Injector
5 mg SC WE
cefazolin 10 gram Recon Soln
2 g IV Q8H Qty: 30 0RF
codeine-guaifenesin 10-100 mg/5 mL Liquid
10 ml PO Q4HPRN PRN (Reason: cough) Qty: 1 0RF
benzonatate 100 mg Capsule
200 mg PO TIDPRN PRN (Reason: cough) Qty: 20 0RF
methylprednisolone [Medrol (Cameron)] 4 mg tablets,dose pack
See Rx Instructions .ROUTE .COMPLEX Qty: 21 0RF
Rx Instructions:
for 6 days
Referrals:
Christiano Mendoza MD [Family Provider, [facility]] - Follow up in 2-3 days
Activity Restrictions/Additional Instructions:
You do have a little bit of inflammation in your colon of the descending side to suggest colitis but your white count is normal and your other blood work is fine today suggesting this is probably not C. difficile. You do need to have stool studies
performed before another round of antibiotics. I called your family doctor and let them know so they are going to retest you for C. difficile and the rest of the stool cultures. You can provide that sample to [facility]. Return for bloody diarrhea,
fever, severe pain, severe dehydration or any concern
Interventions
Interventions:
*Risk Screen - Suicide Last Done: 11/20/24 10:59
*General Assessment Last Done: 11/20/24 12:47
*Neglect/Abuse Screening Last Done: 11/20/24 10:59
*ED- Fall Risk Assessment Last Done: 11/20/24 12:47
*Nursing Disposition Last Done: 11/20/24 17:01
IQ-Flmhde-Kxsfxrkvak Assessment Last Done: 11/20/24 12:47
Discharge Date and Time
Discharge Date/Time: 11/20/24 17:02
Print Language: TELUGU
[2024-11-20] MEDS: NSS 500 IV (12:31)
[2024-11-20 12:42] LABS: % Basophils 0.8 % (0-2); % Eosinophils 2.9 % (0-6); % Immature Granulocytes 0.5 % (0-0.5); % Lymphocytes 14.3 % (20.5-51.1); % Monocytes 7.2 % (1.7-9.3); % Neutrophils 74.3 % (42.2-75.2); Absolute Basophils 0.1 10^3/uL (0-0.2); Absolute Eosinophils 0.2 10^3/uL (0-0.7); Absolute Lymphocytes 1.2 10^3/uL (1.2-3.4); Absolute Monocytes 0.6 10^3/uL (0.1-0.6); Absolute Neutrophils 6.2 10^3/uL (1.4-6.5); Hematocrit 38.9 % (37.0-47.0); Hemoglobin 12.6 g/dL (12.0-16.0); Mean Corp Hgb Conc. 32.4 g/dL (33.0-37.0); Mean Corpuscular Hgb 28.7 pg (27.0-31.0); Mean Corpuscular Volume 88.6 fL (81.0-99.0); Mean Platelet Volume 9.1 fL (7.4-10.4); Nucleated Red Blood Cells % 0 %; Platelet Count 271 10^3/uL (130-400); Red Blood Cell Count 4.39 10^6/uL (4.20-5.40); Red Cell Dist. Width 14.9 % (11.5-14.5); White Blood Cell Count 8.3 10^3/uL (4.8-10.8)
[2024-11-20 13:06] LABS: Lactic Acid 0.8 mmol/L (0.7-2.0)
[2024-11-20 13:07] LABS: ALT (SGPT) 16 U/L (0-35); AST (SGOT) 19 U/L (14-36); Albumin 3.9 g/dl (3.5-5.0); Alkaline Phosphatase 63 U/L (38-126); Blood Urea Nitrogen 13 mg/dl (7-17); Calcium 9.5 mg/dl (8.4-10.2); Carbon Dioxide 28 mmol/L (22-30); Chloride 101 mmol/L (98-107); Glucose 83 mg/dl (70-99); Lipase 23 U/L (23-300); Magnesium 1.8 mg/dl (1.6-2.3); Potassium 3.5 mmol/L (3.5-5.1); Sodium 136 mmol/L (135-145); Total Bilirubin 0.5 mg/dl (0.2-1.3); Total Protein 6.3 g/dl (6.3-8.2); eGFR > 60.00
[2024-11-20 16:56] VITALS: BP 120/68
== END 2024-11-20 17:02 | disposition home or self-care (01) ==
LOC: EMR 10:52
PROVIDERS: Physician Assistant; EMERGENCY PHYSICIAN Emergency Medicine; FAMILY PHYSICIAN Family Medicine
DX: R19.7 Diarrhea, unspecified (principal); I10 Essential (primary) hypertension; E78.00 Pure hypercholesterolemia, unspecified; Z87.891 Personal history of nicotine dependence
CPT/HCPCS: 99285; 96360; 74177; 80053; 83605; 83690; 83735; 85025; 87045; 87046; 87324; 87328; 87329; 87427; 87449; Q9967

== ENCOUNTER → 2025-02-16 10:09 | Outpatient (REF) | payer MEDICARE, OTHER, SELFPAY | LOC: RAD 10:09 | PROVIDERS: ATTENDING PHYSICIAN Family Medicine | DX: R05.3 Chronic cough (principal) | CPT/HCPCS: 71046 ==

== ENCOUNTER → 2025-02-17 11:13 | Outpatient (REF) | payer MEDICARE, OTHER, SELFPAY | LOC: WDC 11:13 | PROVIDERS: ATTENDING PHYSICIAN Family Medicine | DX: Z12.31 Encounter for screening mammogram for malignant neoplasm of breast (principal) | CPT/HCPCS: 77063; 77067 ==

== ENCOUNTER → 2025-04-13 13:40 | Outpatient (REF) | payer MEDICARE, OTHER, SELFPAY | LOC: RAD 13:40 | PROVIDERS: ATTENDING PHYSICIAN Family Medicine | DX: Z13.820 Encounter for screening for osteoporosis (principal); M81.0 Age-related osteoporosis without current pathological fracture | CPT/HCPCS: 77080 ==

== ENCOUNTER → 2025-05-15 13:09 | Outpatient (REF) | payer MEDICARE, OTHER, SELFPAY | LOC: RAD 13:09 | PROVIDERS: ATTENDING PHYSICIAN Family Medicine | DX: R05.3 Chronic cough (principal) | CPT/HCPCS: 71046 ==